=== PATIENT | female | born 1950 | race Caucasian/White ===

== ENCOUNTER → 2018-02-08 11:20 | Outpatient (CLI) | payer MEDICARE, OTHER, SELFPAY ==
[2018-02-08 11:51] LABS: Add Manual Diff / Slide Review NO; Basophils Percent Auto 1.7 % (0-2); Eosinophils Percent Auto 4.9 % (2-4); Hematocrit 38.1 % (36-46); Hemoglobin 13.1 g/dL (12.0-16.0); Lymphocytes Percent Auto 27.2 % (25-40); Mean Corpuscular HGB Conc 34.4 % (30-36); Mean Corpuscular Hemoglobin 31.9 PG (26-34); Mean Corpuscular Volume 92.8 fL (80-100); Monocytes Percent Auto 12.9 % (3-14); Neutrophils Absolute Auto 3100 /uL (3000-5900); Neutrophils Percent Auto 53.3 % (50-75); Platelet Count 352 X10^3/uL (150-400); Red Blood Cell Count 4.11 X10^6/uL (4.0-5.2); Red Cell Distribution Width 13.5 % (11.6-14.8); White Blood Cell Count 5.8 X10^3/uL (4.5-11.0)
[2018-02-08 12:09] LABS: Erythrocyte Sedimentation Rate 16 MM/HR (0-20)
[2018-02-08 12:16] LABS: Alanine Aminotransferase 22 IU/L (9-52); Albumin 4.2 g/dL (3.5-5.0); Albumin Globulin Ratio 1.6 (1.0-2.8); Alkaline Phosphatase 43 U/L (38-126); Aspartate Aminotransferase 24 IU/L (14-36); BUN Creatinine Ratio 25.7 (6-22); Bilirubin Total 0.5 mg/dL (0.2-1.3); Blood Urea Nitrogen 18 mg/dL (7-17); Calcium 9.2 mg/dL (8.4-10.2); Carbon Dioxide 27 mmol/L (22-32); Chloride 106 mmol/L (98-107); Estimated Glomerular Filt Rate > 60.0 mL/min (>60); Globulin 2.7 g/dL (1.7-4.1); Glucose 84 mg/dL (80-110); HEMOLYSIS < 15 (0-50); Potassium 4.2 mmol/L (3.4-5.1); Sodium 143 mmol/L (137-145); Total Protein 6.9 g/dL (6.3-8.2)
[2018-02-08 12:35] LABS: C-Reactive Protein Quant < 0.5 mg/dL (<1.0)
== END ==
PROVIDERS: PCP Physician Assistant; Visit Provider Student in an Organized Health Care Education/Training Program
DX: I77.6 Arteritis, unspecified (principal)
CPT/HCPCS: 36415; 80053; 85025; 85651; 86140

== ENCOUNTER → 2018-03-14 11:08 | Outpatient (CLI) | payer MEDICARE, OTHER, SELFPAY ==
[2018-03-14 12:39] LABS: Add Manual Diff / Slide Review NO; Basophils Percent Auto 1.1 % (0-2); Hematocrit 38.3 % (36-46); Hemoglobin 13.2 g/dL (12.0-16.0); Lymphocytes Percent Auto 40.9 % (25-40); Mean Corpuscular HGB Conc 34.5 % (30-36); Mean Corpuscular Hemoglobin 32.3 PG (26-34); Mean Corpuscular Volume 93.9 fL (80-100); Monocytes Percent Auto 11.3 % (3-14); Neutrophils Absolute Auto 1700 /uL (3000-5900); Neutrophils Percent Auto 41.7 % (50-75); Platelet Count 353 X10^3/uL (150-400); Red Blood Cell Count 4.08 X10^6/uL (4.0-5.2); Red Cell Distribution Width 13.4 % (11.6-14.8)
[2018-03-14 12:45] LABS: Alanine Aminotransferase 27 IU/L (9-52); Albumin 4.3 g/dL (3.5-5.0); Albumin Globulin Ratio 1.7 (1.0-2.8); Alkaline Phosphatase 44 U/L (38-126); Aspartate Aminotransferase 25 IU/L (14-36); BUN Creatinine Ratio 15.7 (6-22); Blood Urea Nitrogen 11 mg/dL (7-17); Calcium 9.9 mg/dL (8.4-10.2); Carbon Dioxide 30 mmol/L (22-32); Chloride 105 mmol/L (98-107); Estimated Glomerular Filt Rate > 60.0 mL/min (>60); Globulin 2.6 g/dL (1.7-4.1); Glucose 84 mg/dL (80-110); HEMOLYSIS < 15 (0-50); Potassium 5.2 mmol/L (3.4-5.1); Sodium 144 mmol/L (137-145); Total Protein 6.9 g/dL (6.3-8.2)
[2018-03-14 12:47] LABS: C-Reactive Protein Quant < 0.5 mg/dL (<1.0)
[2018-03-14 13:05] LABS: Erythrocyte Sedimentation Rate 14 MM/HR (0-20)
== END ==
PROVIDERS: PCP Physician Assistant; Visit Provider Student in an Organized Health Care Education/Training Program
DX: I77.6 Arteritis, unspecified (principal)
CPT/HCPCS: 36415; 80053; 85025; 85651; 86140

== ENCOUNTER → 2018-07-21 13:14 | Outpatient (CLI) | payer MEDICARE, OTHER, SELFPAY ==
[2018-07-21 13:58] LABS: Add Manual Diff / Slide Review NO; Basophils Absolute Auto 100 /uL (0-100); Basophils Percent Auto 1.2 % (0-2); Eosinophils Absolute Auto 300 /uL (0-450); Eosinophils Percent Auto 3.6 % (2-4); Hematocrit 40.4 % (36-46); Hemoglobin 13.5 g/dL (12.0-16.0); Lymphocytes Absolute Auto 2600 /uL (1100-4500); Lymphocytes Percent Auto 32.7 % (25-40); Mean Corpuscular HGB Conc 33.4 % (30-36); Mean Corpuscular Hemoglobin 31.7 PG (26-34); Mean Corpuscular Volume 94.8 fL (80-100); Monocytes Absolute Auto 700 /uL (0-900); Monocytes Percent Auto 8.4 % (3-14); Neutrophils Absolute Auto 4200 /uL (1500-7000); Neutrophils Percent Auto 54.1 % (50-75); Platelet Count 337 X10^3/uL (150-400); Red Blood Cell Count 4.27 X10^6/uL (4.0-5.2); Red Cell Distribution Width 13.6 % (11.6-14.8); White Blood Cell Count 7.9 X10^3/uL (4.5-11.0)
[2018-07-21 14:19] LABS: Erythrocyte Sedimentation Rate 22 MM/HR (0-20)
[2018-07-21 14:45] LABS: Alanine Aminotransferase 27 IU/L (9-52); Albumin 4.6 g/dL (3.5-5.0); Albumin Globulin Ratio 1.7 (1.0-2.8); Alkaline Phosphatase 49 U/L (38-126); Aspartate Aminotransferase 22 IU/L (14-36); BUN Creatinine Ratio 15.7 (6-22); Bilirubin Total 0.6 mg/dL (0.2-1.3); Blood Urea Nitrogen 11 mg/dL (7-17); Calcium 9.9 mg/dL (8.4-10.2); Carbon Dioxide 30 mmol/L (22-32); Chloride 100 mmol/L (98-107); Estimated Glomerular Filt Rate > 60.0 mL/min (>60); Globulin 2.7 g/dL (1.7-4.1); Glucose 125 mg/dL (80-110); HEMOLYSIS < 15 (0-50); Potassium 4.8 mmol/L (3.4-5.1); Sodium 141 mmol/L (137-145); Total Protein 7.3 g/dL (6.3-8.2)
[2018-07-21 14:47] LABS: C-Reactive Protein Quant < 0.5 mg/dL (<1.0)
== END ==
PROVIDERS: PCP Physician Assistant; Visit Provider Student in an Organized Health Care Education/Training Program
DX: I77.6 Arteritis, unspecified (principal)
CPT/HCPCS: 36415; 80053; 85025; 85651; 86140

== ENCOUNTER → 2018-10-25 09:28 | Outpatient (CLI) | payer MEDICARE, OTHER, SELFPAY ==
[2018-10-25 10:24] LABS: Add Manual Diff / Slide Review NO; Basophils Absolute Auto 0 /uL (0-100); Basophils Percent Auto 0.9 % (0-2); Eosinophils Absolute Auto 300 /uL (0-450); Eosinophils Percent Auto 5.1 % (2-4); Hematocrit 40.5 % (36-46); Hemoglobin 13.8 g/dL (12.0-16.0); Lymphocytes Absolute Auto 1600 /uL (1100-4500); Lymphocytes Percent Auto 29.3 % (25-40); Mean Corpuscular HGB Conc 34.1 % (30-36); Mean Corpuscular Hemoglobin 32.2 PG (26-34); Mean Corpuscular Volume 94.3 fL (80-100); Monocytes Absolute Auto 500 /uL (0-900); Monocytes Percent Auto 9.9 % (3-14); Neutrophils Absolute Auto 3000 /uL (1500-7000); Neutrophils Percent Auto 54.8 % (50-75); Platelet Count 372 X10^3/uL (150-400); Red Cell Distribution Width 13.3 % (11.6-14.8); White Blood Cell Count 5.4 X10^3/uL (4.5-11.0)
[2018-10-25 10:36] LABS: Erythrocyte Sedimentation Rate 22 MM/HR (0-20)
[2018-10-25 11:07] LABS: Alanine Aminotransferase 17 IU/L (9-52); Albumin 4.4 g/dL (3.5-5.0); Albumin Globulin Ratio 1.6 (1.0-2.8); Alkaline Phosphatase 59 U/L (38-126); Aspartate Aminotransferase 21 IU/L (14-36); Bilirubin Total 0.4 mg/dL (0.2-1.3); Blood Urea Nitrogen 14 mg/dL (7-17); C-Reactive Protein Quant 0.7 mg/dL (<1.0); Carbon Dioxide 27 mmol/L (22-32); Chloride 102 mmol/L (98-107); Estimated Glomerular Filt Rate > 60.0 mL/min (>60); Globulin 2.8 g/dL (1.7-4.1); Glucose 84 mg/dL (80-110); HEMOLYSIS < 15 (0-50); Sodium 139 mmol/L (137-145); Total Protein 7.2 g/dL (6.3-8.2)
== END ==
PROVIDERS: Family Provider Physician Assistant; PCP Physician Assistant; Visit Provider Student in an Organized Health Care Education/Training Program
DX: I77.6 Arteritis, unspecified (principal)
CPT/HCPCS: 36415; 80053; 85025; 85651; 86140

== ENCOUNTER → 2019-02-09 10:33 | Outpatient (CLI) | payer MEDICARE, OTHER, SELFPAY ==
[2019-02-09 12:10] LABS: Add Manual Diff / Slide Review NO; Basophils Absolute Auto 100 /uL (0-100); Basophils Percent Auto 0.9 % (0-2); Eosinophils Absolute Auto 200 /uL (0-450); Eosinophils Percent Auto 3.9 % (2-4); Hematocrit 39.7 % (36-46); Hemoglobin 13.8 g/dL (12.0-16.0); Lymphocytes Absolute Auto 1800 /uL (1100-4500); Lymphocytes Percent Auto 29.1 % (25-40); Mean Corpuscular HGB Conc 34.8 % (30-36); Mean Corpuscular Hemoglobin 32.3 PG (26-34); Mean Corpuscular Volume 92.9 fL (80-100); Monocytes Absolute Auto 500 /uL (0-900); Monocytes Percent Auto 8.2 % (3-14); Neutrophils Absolute Auto 3500 /uL (1500-7000); Neutrophils Percent Auto 57.9 % (50-75); Platelet Count 375 X10^3/uL (150-400); Red Blood Cell Count 4.27 X10^6/uL (4.0-5.2); Red Cell Distribution Width 13.7 % (11.6-14.8)
[2019-02-09 12:14] LABS: Alanine Aminotransferase 12 IU/L (9-52); Albumin 4.3 g/dL (3.5-5.0); Albumin Globulin Ratio 1.4 (1.0-2.8); Alkaline Phosphatase 60 U/L (38-126); Aspartate Aminotransferase 23 IU/L (14-36); BUN Creatinine Ratio 17.1 (6-22); Bilirubin Total 0.7 mg/dL (0.2-1.3); Blood Urea Nitrogen 12 mg/dL (7-17); C-Reactive Protein Quant 0.6 mg/dL (<1.0); Calcium 9.7 mg/dL (8.4-10.2); Carbon Dioxide 28 mmol/L (22-32); Chloride 102 mmol/L (98-107); Estimated Glomerular Filt Rate > 60.0 mL/min (>60); Globulin 3.1 g/dL (1.7-4.1); Glucose 88 mg/dL (80-110); HEMOLYSIS < 15 (0-50); Potassium 4.5 mmol/L (3.4-5.1); Sodium 141 mmol/L (137-145); Total Protein 7.4 g/dL (6.3-8.2)
[2019-02-09 13:15] LABS: Erythrocyte Sedimentation Rate 30 MM/HR (0-20)
== END ==
PROVIDERS: Family Provider Physician Assistant; PCP Physician Assistant; Visit Provider Student in an Organized Health Care Education/Training Program
DX: I77.6 Arteritis, unspecified (principal)
CPT/HCPCS: 36415; 80053; 85025; 85651; 86140

== ENCOUNTER → 2020-01-15 15:05 | Outpatient (CLI) | payer MEDICARE, OTHER, SELFPAY ==
[2020-01-15 15:41] LABS: Add Manual Diff / Slide Review NO; Basophils Absolute Auto 100 /uL (0-100); Basophils Percent Auto 0.7 % (0-2); Eosinophils Absolute Auto 200 /uL (0-450); Eosinophils Percent Auto 1.7 % (2-4); Hematocrit 36.5 % (36-46); Hemoglobin 12.5 g/dL (12.0-16.0); Lymphocytes Absolute Auto 2000 /uL (1100-4500); Lymphocytes Percent Auto 19.4 % (25-40); Mean Corpuscular HGB Conc 34.2 % (30-36); Mean Corpuscular Hemoglobin 31.1 PG (26-34); Mean Corpuscular Volume 90.8 fL (80-100); Monocytes Absolute Auto 600 /uL (0-900); Neutrophils Absolute Auto 7500 /uL (1500-7000); Neutrophils Percent Auto 72.2 % (50-75); Platelet Count 328 X10^3/uL (150-400); Red Blood Cell Count 4.02 X10^6/uL (4.0-5.2); Red Cell Distribution Width 13.1 % (11.6-14.8); White Blood Cell Count 10.3 X10^3/uL (4.5-11.0)
[2020-01-15 15:58] LABS: Alanine Aminotransferase 16 IU/L (<35); Albumin 4.2 g/dL (3.5-5.0); Albumin Globulin Ratio 1.4 (1.0-2.8); Alkaline Phosphatase 64 U/L (38-126); Aspartate Aminotransferase 26 IU/L (14-36); BUN Creatinine Ratio 25.3 (6-22); Bilirubin Total 0.7 mg/dL (0.2-1.3); Blood Urea Nitrogen 21 mg/dL (7-17); Calcium 9.7 mg/dL (8.4-10.2); Carbon Dioxide 29 mmol/L (22-32); Chloride 107 mmol/L (98-107); Estimated Glomerular Filt Rate > 60.0 mL/min (>60); Globulin 3.1 g/dL (1.7-4.1); Glucose 95 mg/dL (80-110); HEMOLYSIS < 15 (0-50); Potassium 4.3 mmol/L (3.4-5.1); Sodium 141 mmol/L (137-145); Total Protein 7.3 g/dL (6.3-8.2)
[2020-01-15 16:03] LABS: Erythrocyte Sedimentation Rate 31 MM/HR (0-20)
[2020-01-15 16:04] LABS: C-Reactive Protein Quant < 0.5 mg/dL (<1.0)
== END ==
PROVIDERS: Family Provider Physician Assistant; PCP Physician Assistant; Referring Provider Student in an Organized Health Care Education/Training Program; Visit Provider Student in an Organized Health Care Education/Training Program
DX: I77.6 Arteritis, unspecified (principal)
CPT/HCPCS: 36415; 80053; 85025; 85651; 86140

== ENCOUNTER 2020-04-08 17:08 | Emergency (ER) | payer MEDICARE, OTHER, SELFPAY ==
[2020-04-08 17:23] VITALS: BP 199/83; PULSE 59; RESP 14; TEMP 36.7; O2SAT 99
--- NOTE | 2020-04-08 18:54 | ED_ITS ---
HPI - Wound/Laceration General Chief Complaint: Wound/Laceration Stated Complaint: FALL LACERATION OF RIGHT SIDE OF HEAD Time Seen by Provider: 04/08/20 18:45 Source: patient Mode of arrival: Ambulatory Limitations: no limitations History of Present Illness HPI narrative: 69F non smoker with noncontributory medical history presents with her after a ground level fall resulted in a laceration above her right eyebrow. She denies loss of consciousness, nausea or vomiting nor the use of blood thinners or alcohol. She denies any other injury. She has full recall of the event and is otherwise well and free of complaint. She was walking and tripped over uneven ground and fell forward. Onset (ago): hour(s) Location: face Body four view annotation: 1. Place: home Patient tetanus UTD: Yes Context: accidental Associated symptoms: none Treatments prior to arrival: bandage Related Data Home Medications Medication Instructions Recorded Confirmed triamcinolone acetonide 0.1 % TOPICAL QDAYP PRN #454 gm 03/10/16 folic acid 2 tab PO DAILY #0 09/09/17 leucovorin calcium 1 tab PO WEEKLY #0 09/09/17 methotrexate sodium 3 tab PO WEEKLY #0 09/09/17 Previous Rx's Medication Instructions Recorded alendronate 70 mg tablet 70 mg PO QWEEK #12 tab 10/24/18 Allergies Allergy/AdvReac Type Severity Reaction Status Date / Time morphine [MORPHINE] AdvReac Intermediate HIVES Unverified 09/29/17 12:04 Review of Systems Constitutional Constitutional: Denies chills, Denies fatigue, Denies fever(s), Denies frequent falls, Denies lethargy and Denies weakness Eyes Eyes: Denies change in vision, Denies eye discharge, Denies irritation and Denies loss of vision ENT Ears, Nose, Mouth, and Throat: Denies change in voice, Denies dizziness, Denies neck pain, Denies sore throat and Denies throat swelling Cardiovascular Cardiovascular: Denies chest pain, Denies irregular heart rhythm, Denies lightheadedness, Denies palpitations, Denies dyspnea, Denies dyspnea on exertion and Denies orthopnea Respiratory Respiratory: Denies cough, Denies dyspnea, Denies dyspnea on exertion and Denies wheezing Gastrointestinal Gastrointestinal: Denies abdominal pain, Denies change in bowel habits, Denies diarrhea, Denies nausea and Denies vomiting Musculoskeletal Musculoskeletal: Denies neck pain and Denies numbness Integumentary/Breasts Skin/Breast: Denies pruritus, Denies erythema, Denies rash and Denies wounds Neurologic Neurologic: Denies behavioral changes, Denies confusion, Denies dizziness, Denies frequent falls, Denies loss of vision, Denies numbness and Denies weakness Psychiatric Psychiatric: Denies anxiety, Denies behavioral changes, Denies confusion, Denies depression, Denies homicidal ideation and Denies suicidal ideation Endocrine Endocrine: Denies fatigue, Denies flushing and Denies palpitations Hematologic/Lymphatic Hematologic/Lymphatic: Denies easy bruising Allergic/Immunologic Allergic/Immunologic: Denies urticaria, Denies throat swelling and Denies wheezing Patient History Family History (Updated 03/10/16 @ 00:00 by Farida Shanks PA-C) Brother Type 1 diabetes mellitus without complication Brother Alcoholism /alcohol abuse Father Essential hypertension Mother Essential hypertension Social History Smoking Status: Never smoker Smoking Status: Never smoker tobacco type: cigarettes alcohol intake frequency: 0-2 drinks per day Alcohol type: beer Substance Use Type: does not use Exam Narrative Exam Narrative: GENERAL: [69] year old patient appears stated age. Well-nourishe d, well-developed patient, in mild distress. GCS 15 HEAD: 3cm laceration lateral to R brow. NO evidence of depressed skull fracture. Normocephalic. EYES: Pupils equal round and reactive. Extraocular motions intact. No scleral icterus. No injection or drainage. ENT: Nose without bleeding, purulent drainage. Throat without erythema, tonsillar hypertrophy or exudate. Airway patent. NECK: Trachea midline. Non tender CARDIOVASCULAR: Regular rate and rhythm without murmurs, gallops, or rubs. RESPIRATORY: Clear to auscultation. Breath sounds equal bilaterally. No wheezes, rales, or rhonchi. GASTROINTESTINAL: Abdomen soft, non-tender, nondistended. EXTREMITIES: No edema or joint tenderness. BACK: Nontender without deformity or crepitance. No flank tenderness. NEURO: AOx3. SKIN: No rash or erythema of visible areas Initial Vital Signs Initial Vital Signs: Vital Signs Temperature 98.1 F 04/08/20 17:23 Pulse Rate 59 L 04/08/20 17:23 Respiratory Rate 14 04/08/20 17:23 Blood Pressure 199/83 H 04/08/20 17:23 Pulse Oximetry 99 04/08/20 17:23 Procedures Laceration Repair Laceration 1: Site: face Side (If applicable): right Size (cm): 3 Description: linear Depth: simple, single layer Local Anesthetic: lidocaine 1% and with bicarb Amount of anesthesia used (mL): 4 Pre-repair: wound explored, irrigated extensively and deep structures intact Skin layer closed with: nylon Size (cm): 6-0 Number of sutures: 5 Technique: simple, interrupted Course Orders Ordered: Discontinued Medications Bacitracin (Bacitracin) 1 applic TOP NOW ONE Stop: 04/08/20 19:12 Last Admin: 04/08/20 19:14 Dose: 1 applic Documented by: KGALLAG Lidocaine/Sodium Bicarbonate (Buffered Lidocaine 10 Ml Syr) 10 ml INJ NOW ONE Stop: 04/08/20 18:59 Last Admin: 04/08/20 19:04 Dose: 10 ml Documented by: BTONER Vital Signs Vital signs: Vital Signs - 8 hr 04/08/20 19:23 Pulse Rate 60 Respiratory Rate 15 Blood Pressure 174/77 H Pulse Oximetry 100 Discharge Plan Departure Patient Disposition: Home Clinical Impression: Laceration Discharge Date/Time: 04/08/20 19:26 Instructions: DI for Laceration Repair Activity Restrictions/Additional Instructions: Please keep the wound clean and dry to the best of your ability. Please monitor for signs of infection such as redness to the skin or increasing pain. Have the sutures removed by your doctor in about 7 days. If you are unable to get into your doctor, we would be happy to remove the sutures in that same timeframe. Prescriptions: No Action triamcinolone acetonide 0.1 % ointment 0.1 % Topical QDAYP PRNQty: 454 RF: 0 methotrexate sodium 2.5 MG tablet 3 tab PO WEEKLY Qty: 0 RF: 0 folic acid 1 MG tablet 2 tab PO DAILY Qty: 0 RF: 0 leucovorin calcium 10 MG tablet 1 tab PO WEEKLY Qty: 0 RF: 0 alendronate 70 mg tablet 70 mg PO QWEEK Qty: 12 RF: 0
[2020-04-08] MEDS: LIDO 1%/SOD BICARB 8.4% (10ML) 10 ML SYRINGE INJ (19:04)
[2020-04-08] MEDS: BACITRACIN OINT 0.9 GM PCKT 1 APPLIC TOP (19:14)
[2020-04-08 19:23] VITALS: BP 174/77; PULSE 60; RESP 15; O2SAT 100
--- NOTE | 2020-04-08 19:25 | PC.NURSE ---
sutures done by dr murray.
== END 2020-04-08 19:26 | disposition home or self-care (01) ==
PROVIDERS: Emergency Provider Emergency Medicine
DX: S01.111A Laceration without foreign body of right eyelid and periocular area, initial encounter (principal); W19.XXXA Unspecified fall, initial encounter
CPT/HCPCS: 12013; 99283

== ENCOUNTER → 2020-04-16 12:13 | Outpatient (CLI) | payer MEDICARE, OTHER, SELFPAY ==
[2020-04-16 13:09] LABS: Hematocrit 39.9 % (36-46); Hemoglobin 13.5 g/dL (12.0-16.0); Mean Corpuscular HGB Conc 33.9 % (30-36); Mean Corpuscular Hemoglobin 31.3 PG (26-34); Mean Corpuscular Volume 92.4 fL (80-100); Platelet Count 441 X10^3/uL (150-400); Red Blood Cell Count 4.32 X10^6/uL (4.0-5.2); Red Cell Distribution Width 13.5 % (11.6-14.8)
[2020-04-16 13:20] LABS: Neutrophils Absolute Manual 4410 /uL (3000-5900); RBC Morphology Normal Morphology; Total Cells Counted 100
[2020-04-16 13:25] LABS: Alanine Aminotransferase 18 IU/L (<35); Albumin 4.5 g/dL (3.5-5.0); Albumin Globulin Ratio 1.3 (1.0-2.8); Alkaline Phosphatase 77 U/L (38-126); Aspartate Aminotransferase 28 IU/L (14-36); BUN Creatinine Ratio 13.5 (6-22); Bilirubin Total 0.6 mg/dL (0.2-1.3); Blood Urea Nitrogen 12 mg/dL (7-17); Calcium 9.7 mg/dL (8.4-10.2); Carbon Dioxide 32 mmol/L (22-32); Chloride 103 mmol/L (98-107); Cholesterol 235 mg/dL (140-199); Estimated Glomerular Filt Rate > 60.0 mL/min (>60); Globulin 3.5 g/dL (1.7-4.1); Glucose 91 mg/dL (80-110); HDL Cholesterol 49 mg/dL (40-60); HEMOLYSIS < 15 (0-50); LDL Cholesterol Calculated 154 mg/dL (<100); Potassium 5.3 mmol/L (3.4-5.1); Sodium 140 mmol/L (137-145); Triglycerides 159 mg/dL (35-150)
[2020-04-16 13:26] LABS: Erythrocyte Sedimentation Rate 34 MM/HR (0-20)
[2020-04-16 13:57] LABS: TSH w/ Reflex to FT4 0.65 uIU/mL (0.47-4.68)
== END ==
PROVIDERS: PCP Registered Nurse Diabetes Educator; Referring Provider Registered Nurse Diabetes Educator; Visit Provider Registered Nurse Diabetes Educator
DX: Z00.00 Encounter for general adult medical examination without abnormal findings (principal); Z12.11 Encounter for screening for malignant neoplasm of colon; E05.00 Thyrotoxicosis with diffuse goiter without thyrotoxic crisis or storm; I77.6 Arteritis, unspecified
CPT/HCPCS: 36415; 80053; 80061; 84443; 85025; 85651

== ENCOUNTER → 2020-06-03 15:02 | Outpatient (CLI) | payer MEDICARE, OTHER, SELFPAY ==
--- NOTE | 2020-06-03 15:03 | DI.MG.S_ITS ---
BILATERAL DIGITAL SCREENING MAMMOGRAM 3D/2D WITH CAD: 06/03/2020 CLINICAL: Routine screening. Comparison is made to exams dated: 11/03/2017 mammogram, 07/11/2015 mammogram, and 05/09/2008 mammogram - [facility]. The tissue of both breasts is heterogeneously dense. This may lower the sensitivity of mammography. Current study was also evaluated with a Computer Aided Detection (CAD) system. No significant masses, calcifications, or other findings are seen in either breast. There has been no significant interval change. IMPRESSION: NEGATIVE There is no mammographic evidence of malignancy. A 1 year screening mammogram is recommended. This exam was interpreted at Station ID: [id number]. NOTE: For mammograms, a report in lay terms will be sent to the patient. Approximately 15% of breast malignancies will not be visualized mammographically. In the management of a palpable breast mass, a negative mammogram must not discourage biopsy of a clinically suspicious lesion. Electronically Signed By: Cyrus lawson/lidia:06/04/2020 08:22:05 letter sent: Normal Exam ACR BI-RADS Category 1: Negative 3341F
== END ==
PROVIDERS: PCP Registered Nurse Diabetes Educator; Referring Provider Registered Nurse Diabetes Educator; Visit Provider Registered Nurse Diabetes Educator
DX: Z12.31 Encounter for screening mammogram for malignant neoplasm of breast (principal); M81.0 Age-related osteoporosis without current pathological fracture; Z78.0 Asymptomatic menopausal state
CPT/HCPCS: 77063; 77067; 77080

== ENCOUNTER → 2020-07-17 15:00 | Outpatient (CLI) | payer MEDICARE, OTHER, SELFPAY ==
[2020-07-18 14:57] LABS: Fecal Immunochemical Test Negative (Negative)
== END ==
PROVIDERS: PCP Registered Nurse Diabetes Educator; Referring Provider Registered Nurse Diabetes Educator; Visit Provider Registered Nurse Diabetes Educator
DX: E05.00 Thyrotoxicosis with diffuse goiter without thyrotoxic crisis or storm (principal); I77.6 Arteritis, unspecified; Z00.00 Encounter for general adult medical examination without abnormal findings; Z12.11 Encounter for screening for malignant neoplasm of colon
CPT/HCPCS: 82274

== ENCOUNTER → 2020-07-24 10:47 | Outpatient (CLI) | payer MEDICARE, OTHER, SELFPAY ==
[2020-07-24 11:12] LABS: Add Manual Diff / Slide Review NO; Basophils Absolute Auto 100 /uL (0-100); Basophils Percent Auto 1.1 % (0-2); Eosinophils Absolute Auto 300 /uL (0-450); Eosinophils Percent Auto 3.4 % (2-4); Hematocrit 30.5 % (36-46); Hemoglobin 10.4 g/dL (12.0-16.0); Lymphocytes Absolute Auto 2000 /uL (1100-4500); Lymphocytes Percent Auto 25.4 % (25-40); Mean Corpuscular HGB Conc 34.1 % (30-36); Mean Corpuscular Hemoglobin 31.2 PG (26-34); Mean Corpuscular Volume 91.5 fL (80-100); Monocytes Absolute Auto 700 /uL (0-900); Monocytes Percent Auto 8.7 % (3-14); Neutrophils Absolute Auto 4900 /uL (1500-7000); Neutrophils Percent Auto 61.4 % (50-75); Platelet Count 415 X10^3/uL (150-400); Red Blood Cell Count 3.33 X10^6/uL (4.0-5.2); Red Cell Distribution Width 13.3 % (11.6-14.8)
[2020-07-24 11:32] LABS: Erythrocyte Sedimentation Rate 79 MM/HR (0-20)
[2020-07-24 11:34] LABS: BUN Creatinine Ratio 14.5 (6-22); Blood Urea Nitrogen 39 mg/dL (7-17); C-Reactive Protein Quant 0.9 mg/dL (<1.0); Carbon Dioxide 26 mmol/L (22-32); Chloride 108 mmol/L (98-107); Estimated Glomerular Filt Rate 17.6 mL/min (>60); Glucose 95 mg/dL (80-110); HEMOLYSIS < 15 (0-50); Potassium 4.1 mmol/L (3.4-5.1); Sodium 139 mmol/L (137-145)
== END ==
PROVIDERS: PCP Registered Nurse Diabetes Educator; Referring Provider Registered Nurse Diabetes Educator; Visit Provider Registered Nurse Diabetes Educator
DX: E87.5 Hyperkalemia (principal); I77.6 Arteritis, unspecified
CPT/HCPCS: 36415; 80048; 85025; 85651; 86140

== ENCOUNTER 2020-07-24 13:27 | Emergency (ER) | payer MEDICARE, OTHER, SELFPAY ==
[2020-07-24] VITALS (15 sets, daily range): BP systolic 199–239; BP diastolic 82–103; PULSE 59–85; RESP 13–22; TEMP 37.2; O2SAT 98–100
[2020-07-24 14:06] LABS: Add Manual Diff / Slide Review NO; Basophils Absolute Auto 100 /uL (0-100); Basophils Percent Auto 0.7 % (0-2); Eosinophils Absolute Auto 300 /uL (0-450); Eosinophils Percent Auto 2.7 % (2-4); Hematocrit 31.7 % (36-46); Hemoglobin 10.9 g/dL (12.0-16.0); Lymphocytes Absolute Auto 2300 /uL (1100-4500); Lymphocytes Percent Auto 21.1 % (25-40); Mean Corpuscular HGB Conc 34.2 % (30-36); Mean Corpuscular Hemoglobin 31.4 PG (26-34); Mean Corpuscular Volume 91.8 fL (80-100); Monocytes Absolute Auto 900 /uL (0-900); Neutrophils Absolute Auto 7300 /uL (1500-7000); Neutrophils Percent Auto 67.5 % (50-75); Platelet Count 421 X10^3/uL (150-400); Red Blood Cell Count 3.46 X10^6/uL (4.0-5.2); Red Cell Distribution Width 13.1 % (11.6-14.8); White Blood Cell Count 10.8 X10^3/uL (4.5-11.0)
[2020-07-24 14:11] LABS: Alanine Aminotransferase 11 IU/L (<35); Albumin 4.1 g/dL (3.5-5.0); Albumin Globulin Ratio 1.1 (1.0-2.8); Alkaline Phosphatase 70 U/L (38-126); Aspartate Aminotransferase 21 IU/L (14-36); BUN Creatinine Ratio 13.9 (6-22); Bilirubin Total 0.3 mg/dL (0.2-1.3); Blood Urea Nitrogen 39 mg/dL (7-17); Carbon Dioxide 25 mmol/L (22-32); Chloride 109 mmol/L (98-107); Estimated Glomerular Filt Rate 16.8 mL/min (>60); Globulin 3.6 g/dL (1.7-4.1); Glucose 118 mg/dL (80-110); HEMOLYSIS < 15 (0-50); Potassium 3.7 mmol/L (3.4-5.1); Sodium 140 mmol/L (137-145); Total Protein 7.7 g/dL (6.3-8.2)
[2020-07-24 14:12] LABS: Magnesium 2.2 mg/dL (1.6-2.3)
--- NOTE | 2020-07-24 14:22 | DI.CT.S_ITS ---
PROCEDURE: CT KIDNEY URETER BLADDER (KUB) INDICATIONS: elevated cr, hx vasculitis TECHNIQUE: Noncontrast 5 mm thick sections acquired from the diaphragms to the symphysis. 5 mm thick coronal and sagittal reformats were then performed. For radiation dose reduction, the following was used: automated exposure control, adjustment of mA and/or kV according to patient size. COMPARISON: None. FINDINGS: Image quality: Excellent. Lung bases: Lung bases are clear. Heart size is normal. Urinary system: Both kidneys are normal in size. No kidney stones. No hydronephrosis or perinephric fat stranding. Both ureters appear non-dilated throughout their expected courses. Bladder wall thickness is normal; no calcified bladder stones. Other solid organs: Liver is normal in size. A probable significantly contracted gallbladder is noted. Pancreas is normal in contours. Spleen is absent. No adrenal nodules. Peritoneum and bowel: Unenhanced bowel loops demonstrate normal wall thickness and caliber. No free fluid or air. Nodes and vessels: No retroperitoneal or mesenteric adenopathy by size criteria. Aorta and inferior vena cava are normal in caliber. Abdominal wall: No ventral hernias. Pelvis: No free pelvic fluid. No inguinal hernias or adenopathy. Bones: No suspicious bony lesions. No vertebral body compression fractures. IMPRESSION: 1. Remote splenectomy. 2. No evidence of renal stone, ureteral stone, or hydronephrosis. Kidneys are of normal size. Dictated by: Nemesio Deluna M.D. on 07/24/2020 at 14:55 Approved by: Nemesio Deluna M.D. on 07/24/2020 at 15:00
[2020-07-24 14:31] LABS: Erythrocyte Sedimentation Rate 104 MM/HR (0-20)
--- NOTE | 2020-07-24 14:38 | ED.RECABL ---
HPI - Recheck/Abnormal Lab/Rx <WILMAR Tucker - Last Filed: 07/24/20 16:20> General Chief Complaint: Recheck/Abnormal Lab/Rx Stated Complaint: Abnormal labs, states kidneys bad Time Seen by Provider: 07/24/20 13:54 Source: patient Mode of arrival: Ambulatory Limitations: no limitations History of Present Illness HPI narrative: The patient is a 69 year old female nonsmoker with history of ANCA vasculitis as well as Graves disease who presents with a chief complaint of abnormal outpatient labs. The patient was referred to emergency department as her ESR has bumped up to 79 and her creatinine has gone from normal to almost 3 on labs that were drawn today. Overall she states she feels fatigued for the past several weeks. She is under lot of stress at home and subsequently has not been sleeping well until the past few days. She denies any pain, flank pain, dysuria urgency or frequency. She denies any history of kidney stones. Her primary care provider is Gurwinder Madison. Her intravenous therapy nurse is Dr. Regino Galvan from [facility]. Related Data Previous Rx's Medication Instructions Recorded desonide 0.05 % topical cream 1 applictn TOP QD-BID PRN #60 gram 04/29/20 nifedipine 30 mg tablet,extended 30 mg PO DAILY #90 tab 04/29/20 release omeprazole 40 mg capsule,delayed 40 mg PO DAILY #30 cap 04/29/20 release triamcinolone acetonide 0.1 % 0.1 % TOPICAL QDAYP PRN #80 gram 04/29/20 topical ointment alendronate 70 mg tablet 70 mg PO QWEEK #12 tab 06/10/20 Allergies Allergy/AdvReac Type Severity Reaction Status Date / Time morphine [MORPHINE] AdvReac Intermediate HIVES Verified 06/10/20 10:31 Review of Systems <WILMAR Tucker - Last Filed: 07/24/20 16:20> Review of Systems Narrative: GENERAL: See HPI HEENT: Denies sinus pain, ear pain, sore throat, difficulty swallowing, dizziness. RESPIRATORY: Denies dyspnea, cough, wheezing, hemoptysis, sputum. CARDIOVASCULAR: Denies chest pain, palpitations, orthopnea, edema, GASTROINTESTINAL: See HPI : Denies dysuria, frequency, incontinence, hematuria, urinary retention. MUSCULOSKELETAL: denies weakness, joint pain, or bony pain SKIN: Denies rash, skin lesions, or other NEUROLOGIC: Denies weakness, headache, numbness, change in speech, confusion, seizures, incoordination. 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) Family History Brother Type 1 diabetes mellitus without complication Brother Alcoholism /alcohol abuse Father Essential hypertension Mother Essential hypertension Stroke Gout Grandfather History of heart disease Grandmother Cancer Grandfather Circulatory disease Grandmother History of heart disease Social History Smoking Status: Never smoker Smoking Status: Never smoker tobacco type: cigarettes alcohol intake frequency: 0-2 drinks per day Alcohol type: beer Substance Use Type: does not use Exam <WILMAR Tucker - Last Filed: 07/24/20 16:20> Narrative Exam Narrative: GENERAL: This is a well-nourished, well-developed patient, in no acute distress HEAD: Atraumatic. Normocephalic. No temporal or scalp tenderness. EYES: Pupils equal round and reactive. Extraocular motions intact. No scleral icterus. No injection or drainage. ENT: Nose without bleeding, purulent drainage or septal hematoma. Wearing a mask. Airway patent. NECK: Trachea midline. No JVD or lymphadenopathy. Supple, nontender, no meningeal signs. CARDIOVASCULAR: Regular rate and rhythm RESPIRATORY: Clear to auscultation. Breath sounds equal bilaterally. No wheezes, rales, or rhonchi. No cough. No increased respiratory effort. No accessory muscle use. GASTROINTESTINAL: Abdomen soft, non-tender, nondistended. No hepato-splenomegaly, or palpable masses. No guarding. EXTREMITIES: No clubbing, cyanosis, or edema. No joint tenderness, effusion, or edema noted. BACK: Nontender without deformity or crepitance. No CVA tenderness bilaterally. NEURO: AOx3. SKIN: No rash or erythema on visible skin. Initial Vital Signs Initial Vital Signs: Vital Signs Temperature 98.9 F 07/24/20 13:31 Pulse Rate 81 07/24/20 13:31 Respiratory Rate 22 07/24/20 13:31 Blood Pressure 210/93 H 07/24/20 13:31 Pulse Oximetry 99 07/24/20 13:31 <Teena Atkins DO - Last Filed: 07/25/20 08:14> Initial Vital Signs Initial Vital Signs: Vital Signs Temperature 98.9 F 07/24/20 13:31 Pulse Rate 81 07/24/20 13:31 Respiratory Rate 22 07/24/20 13:31 Blood Pressure 210/93 H 07/24/20 13:31 Pulse Oximetry 99 07/24/20 13:31 <Adonis Bradford MD - Last Filed: 07/24/20 23:36> Initial Vital Signs Initial Vital Signs: Vital Signs Temperature 98.9 F 07/24/20 13:31 Pulse Rate 81 07/24/20 13:31 Respiratory Rate 22 07/24/20 13:31 Blood Pressure 210/93 H 07/24/20 13:31 Pulse Oximetry 99 07/24/20 13:31 Course <VERNON Tucker-BC - Last Filed: 07/24/20 16:20> Orders Ordered: Discontinued Medications Sodium Chloride (Normal Saline 0.9%) 1,000 mls @ 1,000 mls/hr IV BOLUS ONE Stop: 07/24/20 15:21 Last Infusion: 07/24/20 16:49 Dose: 0 mls/hr Documented by: Admin: 07/24/20 15:30 Dose: 1,000 mls/hr Documented by: LUPE Methylprednisolone 1,000 mg/ (Sodium Chloride) 258 mls @ 258 mls/hr IV NOW ONE Stop: 07/24/20 17:29 Last Infusion: 07/24/20 19:29 Dose: 0 mls/hr Documented by: Admin: 07/24/20 17:54 Dose: 258 mls/hr Documented by: LUPE Labetalol HCl (Labetalol 20 Mg/4 Ml Syringe) 10 mg IV NOW ONE Stop: 07/24/20 18:33 Last Admin: 07/24/20 18:39 Dose: 10 mg Documented by: LUPE Nifedipine (Nifedipine 30 Mg Tab Er) 30 mg PO NOW ONE Stop: 07/24/20 17:27 Last Admin: 07/24/20 17:32 Dose: 30 mg Documented by: LUPE Vital Signs Vital signs: Vital Signs - 8 hr 07/24/20 16:00 07/24/20 17:06 07/24/20 17:30 Pulse Rate 66 66 85 Respiratory Rate Blood Pressure 225/100 H 239/103 H 212/101 H Pulse Oximetry 99 100 98 07/24/20 18:00 07/24/20 18:30 07/24/20 18:39 Pulse Rate 60 59 L 65 Respiratory Rate Blood Pressure 211/94 H 217/98 H 210/95 H Pulse Oximetry 99 99 07/24/20 18:41 07/24/20 18:51 07/24/20 19:00 Pulse Rate 68 66 63 Respiratory Rate 13 22 18 Blood Pressure 210/95 H 199/82 H 200/93 H Pulse Oximetry 98 98 98 07/24/20 19:19 07/24/20 19:30 07/24/20 19:33 Pulse Rate 72 66 Respiratory Rate 18 Blood Pressure 199/82 H 236/100 H Pulse Oximetry 99 <Teena Atkins, - Last Filed: 07/25/20 08:14> Orders Ordered: Discontinued Medications Sodium Chloride (Normal Saline 0.9%) 1,000 mls @ 1,000 mls/hr IV BOLUS ONE Stop: 07/24/20 15:21 Last Infusion: 07/24/20 16:49 Dose: 0 mls/hr Documented by: Admin: 07/24/20 15:30 Dose: 1,000 mls/hr Documented by: ULPE Methylprednisolone 1,000 mg/ (Sodium Chloride) 258 mls @ 258 mls/hr IV NOW ONE Stop: 07/24/20 17:29 Last Infusion: 07/24/20 19:29 Dose: 0 mls/hr Documented by: Admin: 07/24/20 17:54 Dose: 258 mls/hr Documented by: LUPE Labetalol HCl (Labetalol 20 Mg/4 Ml Syringe) 10 mg IV NOW ONE Stop: 07/24/20 18:33 Last Admin: 07/24/20 18:39 Dose: 10 mg Documented by: LUPE Nifedipine (Nifedipine 30 Mg Tab Er) 30 mg PO NOW ONE Stop: 07/24/20 17:27 Last Admin: 07/24/20 17:32 Dose: 30 mg Documented by: LUPE Vital Signs Vital signs: Vital Signs - 8 hr 07/24/20 16:00 07/24/20 17:06 07/24/20 17:30 Pulse Rate 66 66 85 Respiratory Rate Blood Pressure 225/100 H 239/103 H 212/101 H Pulse Oximetry 99 100 98 07/24/20 18:00 07/24/20 18:30 07/24/20 18:39 Pulse Rate 60 59 L 65 Respiratory Rate Blood Pressure 211/94 H 217/98 H 210/95 H Pulse Oximetry 99 99 07/24/20 18:41 07/24/20 18:51 07/24/20 19:00 Pulse Rate 68 66 63 Respiratory Rate 13 22 18 Blood Pressure 210/95 H 199/82 H 200/93 H Pulse Oximetry 98 98 98 07/24/20 19:19 07/24/20 19:30 07/24/20 19:33 Pulse Rate 72 66 Respiratory Rate 18 Blood Pressure 199/82 H 236/100 H Pulse Oximetry 99 <Adonis Bradford MD - Last Filed: 07/24/20 23:36> Course Course Narrative: Chart entry by me due to complete disposition and diagnosis. Patient was not signed out to me. Dk Orders Ordered: Discontinued Medications Sodium Chloride (Normal Saline 0.9%) 1,000 mls @ 1,000 mls/hr IV BOLUS ONE Stop: 07/24/20 15:21 Last Infusion: 07/24/20 16:49 Dose: 0 mls/hr Documented by: Admin: 07/24/20 15:30 Dose: 1,000 mls/hr Documented by: LUPE Methylprednisolone 1,000 mg/ (Sodium Chloride) 258 mls @ 258 mls/hr IV NOW ONE Stop: 07/24/20 17:29 Last Infusion: 07/24/20 19:29 Dose: 0 mls/hr Documented by: Admin: 07/24/20 17:54 Dose: 258 mls/hr Documented by: LUPE Labetalol HCl (Labetalol 20 Mg/4 Ml Syringe) 10 mg IV NOW ONE Stop: 07/24/20 18:33 Last Admin: 07/24/20 18:39 Dose: 10 mg Documented by: LUPE Nifedipine (Nifedipine 30 Mg Tab Er) 30 mg PO NOW ONE Stop: 07/24/20 17:27 Last Admin: 07/24/20 17:32 Dose: 30 mg Documented by: LUPE Vital Signs Vital signs: Vital Signs - 8 hr 07/24/20 16:00 07/24/20 17:06 07/24/20 17:30 Pulse Rate 66 66 85 Respiratory Rate Blood Pressure 225/100 H 239/103 H 212/101 H Pulse Oximetry 99 100 98 07/24/20 18:00 07/24/20 18:30 07/24/20 18:39 Pulse Rate 60 59 L 65 Respiratory Rate Blood Pressure 211/94 H 217/98 H 210/95 H Pulse Oximetry 99 99 07/24/20 18:41 07/24/20 18:51 07/24/20 19:00 Pulse Rate 68 66 63 Respiratory Rate 13 22 18 Blood Pressure 210/95 H 199/82 H 200/93 H Pulse Oximetry 98 98 98 07/24/20 19:19 07/24/20 19:30 07/24/20 19:33 Pulse Rate 72 66 Respiratory Rate 18 Blood Pressure 199/82 H 236/100 H Pulse Oximetry 99 MDM - Recheck/Abnormal Lab/Rx <VERNON Tucker-BC - Last Filed: 07/24/20 16:20> Lab Data Attestation: I reviewed the patient's lab results. Result diagrams: 07/24/20 13:59 07/24/20 13:59 Labs: Lab Results 07/24/20 07/24/20 07/24/20 Range/Units 13:59 13:59 13:59 WBC 10.8 (4.5-11.0) X10^3/uL RBC 3.46 L (4.0-5.2) X10^6/uL Hgb 10.9 L (12.0-16.0) g/dL Hct 31.7 L (36-46) % MCV 91.8 (80-100) fL MCH 31.4 (26-34) PG MCHC 34.2 (30-36) % RDW 13.1 (11.6-14.8) % Plt Count 421 H (150-400) X10^3/uL Neut % (Auto) 67.5 (50-75) % Lymph % (Auto) 21.1 L (25-40) % [place] % (Auto) 8.0 (3-14) % Eos % (Auto) 2.7 (2-4) % Baso % (Auto) 0.7 (0-2) % Neut # (Auto) 7300 H (5340-4517) /uL Lymph # (Auto) 2300 (3813-9172) /uL [place] # (Auto) 900 (0-900) /uL Eos # (Auto) 300 (0-450) /uL Baso # (Auto) 100 (0-100) /uL ESR (0-20) MM/HR Sodium 140 (137-145) mmol/L Potassium 3.7 (3.4-5.1) mmol/L Chloride 109 H (98-107) mmol/L Carbon Dioxide 25 (22-32) mmol/L BUN 39 H (7-17) mg/dL Creatinine 2.80 H (0.52-1.04) mg/dL Estimated GFR 16.8 L (>60) mL/min BUN/Creatinine Ratio 13.9 (6-22) Glucose 118 H (80-110) mg/dL Calcium 9.0 (8.4-10.2) mg/dL Magnesium 2.2 (1.6-2.3) mg/dL Total Bilirubin 0.3 (0.2-1.3) mg/dL AST 21 (14-36) IU/L ALT 11 (<35) IU/L Alkaline Phosphatase 70 (38-126) U/L C-Reactive Protein (<1.0) mg/dL Total Protein 7.7 (6.3-8.2) g/dL Albumin 4.1 (3.5-5.0) g/dL Globulin 3.6 (1.7-4.1) g/dL Albumin/Globulin Ratio 1.1 (1.0-2.8) Urine RBC (0-5/HPF) Urine WBC (0-5/HPF) Ur Squamous Epith Cells (0-5/HPF) Amorphous Sediment Urine Bacteria (None) Ur Culture Indicated? SARS-CoV-2 (PCR) (Negative) 07/24/20 07/24/20 07/24/20 Range/Units 13:59 13:59 16:12 WBC (4.5-11.0) X10^3/uL RBC (4.0-5.2) X10^6/uL Hgb (12.0-16.0) g/dL Hct (36-46) % MCV (80-100) fL MCH (26-34) PG MCHC (30-36) % RDW (11.6-14.8) % Plt Count (150-400) X10^3/uL Neut % (Auto) (50-75) % Lymph % (Auto) (25-40) % [place] % (Auto) (3-14) % Eos % (Auto) (2-4) % Baso % (Auto) (0-2) % Neut # (Auto) (3904-5715) /uL Lymph # (Auto) (2202-8332) /uL [place] # (Auto) (0-900) /uL Eos # (Auto) (0-450) /uL Baso # (Auto) (0-100) /uL ESR 104 H (0-20) MM/HR Sodium (137-145) mmol/L Potassium (3.4-5.1) mmol/L Chloride (98-107) mmol/L Carbon Dioxide (22-32) mmol/L BUN (7-17) mg/dL Creatinine (0.52-1.04) mg/dL Estimated GFR (>60) mL/min BUN/Creatinine Ratio (6-22) Glucose (80-110) mg/dL Calcium (8.4-10.2) mg/dL Magnesium (1.6-2.3) mg/dL Total Bilirubin (0.2-1.3) mg/dL AST (14-36) IU/L ALT (<35) IU/L Alkaline Phosphatase (38-126) U/L C-Reactive Protein 0.8 (<1.0) mg/dL Total Protein (6.3-8.2) g/dL Albumin (3.5-5.0) g/dL Globulin (1.7-4.1) g/dL Albumin/Globulin Ratio (1.0-2.8) Urine RBC (0-5/HPF) Urine WBC (0-5/HPF) Ur Squamous Epith Cells (0-5/HPF) Amorphous Sediment Urine Bacteria (None) Ur Culture Indicated? SARS-CoV-2 (PCR) Negative (Negative) 07/24/20 Range/Units 16:40 WBC (4.5-11.0) X10^3/uL RBC (4.0-5.2) X10^6/uL Hgb (12.0-16.0) g/dL Hct (36-46) % MCV (80-100) fL MCH (26-34) PG MCHC (30-36) % RDW (11.6-14.8) % Plt Count (150-400) X10^3/uL Neut % (Auto) (50-75) % Lymph % (Auto) (25-40) % [place] % (Auto) (3-14) % Eos % (Auto) (2-4) % Baso % (Auto) (0-2) % Neut # (Auto) (6780-5540) /uL Lymph # (Auto) (4870-2697) /uL [place] # (Auto) (0-900) /uL Eos # (Auto) (0-450) /uL Baso # (Auto) (0-100) /uL ESR (0-20) MM/HR Sodium (137-145) mmol/L Potassium (3.4-5.1) mmol/L Chloride (98-107) mmol/L Carbon Dioxide (22-32) mmol/L BUN (7-17) mg/dL Creatinine (0.52-1.04) mg/dL Estimated GFR (>60) mL/min BUN/Creatinine Ratio (6-22) Glucose (80-110) mg/dL Calcium (8.4-10.2) mg/dL Magnesium (1.6-2.3) mg/dL Total Bilirubin (0.2-1.3) mg/dL AST (14-36) IU/L ALT (<35) IU/L Alkaline Phosphatase (38-126) U/L C-Reactive Protein (<1.0) mg/dL Total Protein (6.3-8.2) g/dL Albumin (3.5-5.0) g/dL Globulin (1.7-4.1) g/dL Albumin/Globulin Ratio (1.0-2.8) Urine RBC 30-100/hpf H (0-5/HPF) Urine WBC 0-1/hpf (0-5/HPF) Ur Squamous Epith Cells 0-1 /hpf (0-5/HPF) Amorphous Sediment 1+ Urine Bacteria None seen (None) Ur Culture Indicated? Cult not indicated SARS-CoV-2 (PCR) (Negative) Urine Dip Bedside Urine Glucose Negative Bedside Urine Bilirubin - Negative Bedside Urine Ketone - Negative Urine Specific [place] 1.015 Bedside Urine Occult Blood +++ Bedside Urine pH 6.5 Bedside Urine Protein ++ 100 Bedside Urine Urobilinogen - Negative Bedside Urine Nitrite - Negative Bedside Urine Leukocytes - Negative Esterase Imaging Data CT scan - abdomen/pelvis: Radiologist's Impression: [address] [place] [id number] Scan ReportSigned Patient: Lili Matthews CMR#: [id number]: 2Acct:[id number]/Sex: 69 / FDate of Service: 07/24/20Loc: EDAccession Number: [id number] Procedure: CT kidney ureter bladder (KUB) Ordering Provider: Luciana Sanford- PROCEDURE: CT KIDNEY URETER BLADDER (KUB) INDICATIONS: elevated cr, hx vasculitis TECHNIQUE: Noncontrast 5 mm thick sections acquired from the diaphragms to the symphysis. 5 mm thick coronal and sagittal reformats were then performed. For radiation dose reduction, the following was used: automated exposure control, adjustment of mA and/or kV according to patient size. COMPARISON: None. FINDINGS: Image quality: Excellent. Lung bases: Lung bases are clear. Heart size is normal. Urinary system: Both kidneys are normal in size. No kidney stones. No hydronephrosis or perinephric fat stranding. Both ureters appear non-dilated throughout their expected courses. Bladder wall thickness is normal; no calcified bladder stones. Other solid organs: Liver is normal in size. A probable significantly contracted gallbladder is noted. Pancreas is normal in contours. Spleen is absent. No adrenal nodules. Peritoneum and bowel: Unenhanced bowel loops demonstrate normal wall thickness and caliber. No free fluid or air. Nodes and vessels: No retroperitoneal or mesenteric adenopathy by size criteria. Aorta and inferior vena cava are normal in caliber. Abdominal wall: No ventral hernias. Pelvis: No free pelvic fluid. No inguinal hernias or adenopathy. Bones: No suspicious bony lesions. No vertebral body compression fractures. IMPRESSION: 1. Remote splenectomy. 2. No evidence of renal stone, ureteral stone, or hydronephrosis. Kidneys are of normal size. Dictated by: Nemesio Deluna M.D. on 07/24/2020 at 14:55 Approved by: Nemesio Deluna M.D. on 07/24/2020 at 15:00 [facility] Narrative Medical decision making narrative: The patient is a 69-year-old female who presents with a chief complaint of increased creatinine and ESR with history of vasculitis. Her creatinine has increased to 2.8. Her ESR has increased from 30s to 70s this morning to low 100s today in the emergency department. CT KUB was taken to ensure no obstructive findings, which resulted negative. I spoke with Dr. Galvan, the patient's intravenous therapy nurse with [facility], who requested that the patient be transferred to that facility for more specialized care including Rheumatology and nephrology services. I spoke with Dr. Dimitris Mcdonald, the hospitalist at [facility] who kindly accepted the patient for transfer. Coronavirus test is pending at this point. Urinalysis is pending at this point. Per Dr Galvan, patient will receive 1 g of methylprednisolone IV if coronavirus and urinalysis tests are negative. Ice discussed this with the patient and she is okay with plan. Discussed that [facility] is not accepting visitors. Given that patient feels overwhelmed and stressed with health changes, family dynamics politics at this point, Juan SIEGEL in to see patient pending transfer. Patient signed out to Dr Atkins pending urinalysis, coronavirus test and possible steroid administration while waiting for [facility] bed. <Teena Atkins, DO - Last Filed: 07/25/20 08:14> Lab Data Labs: Lab Results 07/24/20 07/24/20 07/24/20 Range/Units 13:59 13:59 13:59 WBC 10.8 (4.5-11.0) X10^3/uL RBC 3.46 L (4.0-5.2) X10^6/uL Hgb 10.9 L (12.0-16.0) g/dL Hct 31.7 L (36-46) % MCV 91.8 (80-100) fL MCH 31.4 (26-34) PG MCHC 34.2 (30-36) % RDW 13.1 (11.6-14.8) % Plt Count 421 H (150-400) X10^3/uL Neut % (Auto) 67.5 (50-75) % Lymph % (Auto) 21.1 L (25-40) % [place] % (Auto) 8.0 (3-14) % Eos % (Auto) 2.7 (2-4) % Baso % (Auto) 0.7 (0-2) % Neut # (Auto) 7300 H (5130-0787) /uL Lymph # (Auto) 2300 (2072-3578) /uL [place] # (Auto) 900 (0-900) /uL Eos # (Auto) 300 (0-450) /uL Baso # (Auto) 100 (0-100) /uL ESR (0-20) MM/HR Sodium 140 (137-145) mmol/L Potassium 3.7 (3.4-5.1) mmol/L Chloride 109 H (98-107) mmol/L Carbon Dioxide 25 (22-32) mmol/L BUN 39 H (7-17) mg/dL Creatinine 2.80 H (0.52-1.04) mg/dL Estimated GFR 16.8 L (>60) mL/min BUN/Creatinine Ratio 13.9 (6-22) Glucose 118 H (80-110) mg/dL Calcium 9.0 (8.4-10.2) mg/dL Magnesium 2.2 (1.6-2.3) mg/dL Total Bilirubin 0.3 (0.2-1.3) mg/dL AST 21 (14-36) IU/L ALT 11 (<35) IU/L Alkaline Phosphatase 70 (38-126) U/L C-Reactive Protein (<1.0) mg/dL Total Protein 7.7 (6.3-8.2) g/dL Albumin 4.1 (3.5-5.0) g/dL Globulin 3.6 (1.7-4.1) g/dL Albumin/Globulin Ratio 1.1 (1.0-2.8) Urine RBC (0-5/HPF) Urine WBC (0-5/HPF) Ur Squamous Epith Cells (0-5/HPF) Amorphous Sediment Urine Bacteria (None) Ur Culture Indicated? SARS-CoV-2 (PCR) (Negative) 07/24/20 07/24/20 07/24/20 Range/Units 13:59 13:59 16:12 WBC (4.5-11.0) X10^3/uL RBC (4.0-5.2) X10^6/uL Hgb (12.0-16.0) g/dL Hct (36-46) % MCV (80-100) fL MCH (26-34) PG MCHC (30-36) % RDW (11.6-14.8) % Plt Count (150-400) X10^3/uL Neut % (Auto) (50-75) % Lymph % (Auto) (25-40) % [place] % (Auto) (3-14) % Eos % (Auto) (2-4) % Baso % (Auto) (0-2) % Neut # (Auto) (5013-8094) /uL Lymph # (Auto) (9578-5284) /uL [place] # (Auto) (0-900) /uL Eos # (Auto) (0-450) /uL Baso # (Auto) (0-100) /uL ESR 104 H (0-20) MM/HR Sodium (137-145) mmol/L Potassium (3.4-5.1) mmol/L Chloride (98-107) mmol/L Carbon Dioxide (22-32) mmol/L BUN (7-17) mg/dL Creatinine (0.52-1.04) mg/dL Estimated GFR (>60) mL/min BUN/Creatinine Ratio (6-22) Glucose (80-110) mg/dL Calcium (8.4-10.2) mg/dL Magnesium (1.6-2.3) mg/dL Total Bilirubin (0.2-1.3) mg/dL AST (14-36) IU/L ALT (<35) IU/L Alkaline Phosphatase (38-126) U/L C-Reactive Protein 0.8 (<1.0) mg/dL Total Protein (6.3-8.2) g/dL Albumin (3.5-5.0) g/dL Globulin (1.7-4.1) g/dL Albumin/Globulin Ratio (1.0-2.8) Urine RBC (0-5/HPF) Urine WBC (0-5/HPF) Ur Squamous Epith Cells (0-5/HPF) Amorphous Sediment Urine Bacteria (None) Ur Culture Indicated? SARS-CoV-2 (PCR) Negative (Negative) 07/24/20 Range/Units 16:40 WBC (4.5-11.0) X10^3/uL RBC (4.0-5.2) X10^6/uL Hgb (12.0-16.0) g/dL Hct (36-46) % MCV (80-100) fL MCH (26-34) PG MCHC (30-36) % RDW (11.6-14.8) % Plt Count (150-400) X10^3/uL Neut % (Auto) (50-75) % Lymph % (Auto) (25-40) % [place] % (Auto) (3-14) % Eos % (Auto) (2-4) % Baso % (Auto) (0-2) % Neut # (Auto) (1128-1087) /uL Lymph # (Auto) (1513-3530) /uL [place] # (Auto) (0-900) /uL Eos # (Auto) (0-450) /uL Baso # (Auto) (0-100) /uL ESR (0-20) MM/HR Sodium (137-145) mmol/L Potassium (3.4-5.1) mmol/L Chloride (98-107) mmol/L Carbon Dioxide (22-32) mmol/L BUN (7-17) mg/dL Creatinine (0.52-1.04) mg/dL Estimated GFR (>60) mL/min BUN/Creatinine Ratio (6-22) Glucose (80-110) mg/dL Calcium (8.4-10.2) mg/dL Magnesium (1.6-2.3) mg/dL Total Bilirubin (0.2-1.3) mg/dL AST (14-36) IU/L ALT (<35) IU/L Alkaline Phosphatase (38-126) U/L C-Reactive Protein (<1.0) mg/dL Total Protein (6.3-8.2) g/dL Albumin (3.5-5.0) g/dL Globulin (1.7-4.1) g/dL Albumin/Globulin Ratio (1.0-2.8) Urine RBC 30-100/hpf H (0-5/HPF) Urine WBC 0-1/hpf (0-5/HPF) Ur Squamous Epith Cells 0-1 /hpf (0-5/HPF) Amorphous Sediment 1+ Urine Bacteria None seen (None) Ur Culture Indicated? Cult not indicated SARS-CoV-2 (PCR) (Negative) Urine Dip Bedside Urine Glucose Negative Bedside Urine Bilirubin - Negative Bedside Urine Ketone - Negative Urine Specific [place] 1.015 Bedside Urine Occult Blood +++ Bedside Urine pH 6.5 Bedside Urine Protein ++ 100 Bedside Urine Urobilinogen - Negative Bedside Urine Nitrite - Negative Bedside Urine Leukocytes - Negative Esterase MDM Narrative Medical decision making narrative: Patient signed out to me by Luciana primary care and see. Patient remains hypertensive is given her dose of nifedipine and dose of labetalol to help with blood pressure. COVID and UA are negative she is given a 1000 mg of methylprednisolone. She has been accepted [facility] going to the ED. Handout to Dr. Bradford. <Adonis Bradford MD - Last Filed: 07/24/20 23:36> Lab Data Labs: Lab Results 07/24/20 07/24/20 07/24/20 Range/Units 13:59 13:59 13:59 WBC 10.8 (4.5-11.0) X10^3/uL RBC 3.46 L (4.0-5.2) X10^6/uL Hgb 10.9 L (12.0-16.0) g/dL Hct 31.7 L (36-46) % MCV 91.8 (80-100) fL MCH 31.4 (26-34) PG MCHC 34.2 (30-36) % RDW 13.1 (11.6-14.8) % Plt Count 421 H (150-400) X10^3/uL Neut % (Auto) 67.5 (50-75) % Lymph % (Auto) 21.1 L (25-40) % [place] % (Auto) 8.0 (3-14) % Eos % (Auto) 2.7 (2-4) % Baso % (Auto) 0.7 (0-2) % Neut # (Auto) 7300 H (9528-3186) /uL Lymph # (Auto) 2300 (4901-8069) /uL [place] # (Auto) 900 (0-900) /uL Eos # (Auto) 300 (0-450) /uL Baso # (Auto) 100 (0-100) /uL ESR (0-20) MM/HR Sodium 140 (137-145) mmol/L Potassium 3.7 (3.4-5.1) mmol/L Chloride 109 H (98-107) mmol/L Carbon Dioxide 25 (22-32) mmol/L BUN 39 H (7-17) mg/dL Creatinine 2.80 H (0.52-1.04) mg/dL Estimated GFR 16.8 L (>60) mL/min BUN/Creatinine Ratio 13.9 (6-22) Glucose 118 H (80-110) mg/dL Calcium 9.0 (8.4-10.2) mg/dL Magnesium 2.2 (1.6-2.3) mg/dL Total Bilirubin 0.3 (0.2-1.3) mg/dL AST 21 (14-36) IU/L ALT 11 (<35) IU/L Alkaline Phosphatase 70 (38-126) U/L C-Reactive Protein (<1.0) mg/dL Total Protein 7.7 (6.3-8.2) g/dL Albumin 4.1 (3.5-5.0) g/dL Globulin 3.6 (1.7-4.1) g/dL Albumin/Globulin Ratio 1.1 (1.0-2.8) Urine RBC (0-5/HPF) Urine WBC (0-5/HPF) Ur Squamous Epith Cells (0-5/HPF) Amorphous Sediment Urine Bacteria (None) Ur Culture Indicated? SARS-CoV-2 (PCR) (Negative) 07/24/20 07/24/20 07/24/20 Range/Units 13:59 13:59 16:12 WBC (4.5-11.0) X10^3/uL RBC (4.0-5.2) X10^6/uL Hgb (12.0-16.0) g/dL Hct (36-46) % MCV (80-100) fL MCH (26-34) PG MCHC (30-36) % RDW (11.6-14.8) % Plt Count (150-400) X10^3/uL Neut % (Auto) (50-75) % Lymph % (Auto) (25-40) % [place] % (Auto) (3-14) % Eos % (Auto) (2-4) % Baso % (Auto) (0-2) % Neut # (Auto) (3772-5182) /uL Lymph # (Auto) (3746-5218) /uL [place] # (Auto) (0-900) /uL Eos # (Auto) (0-450) /uL Baso # (Auto) (0-100) /uL ESR 104 H (0-20) MM/HR Sodium (137-145) mmol/L Potassium (3.4-5.1) mmol/L Chloride (98-107) mmol/L Carbon Dioxide (22-32) mmol/L BUN (7-17) mg/dL Creatinine (0.52-1.04) mg/dL Estimated GFR (>60) mL/min BUN/Creatinine Ratio (6-22) Glucose (80-110) mg/dL Calcium (8.4-10.2) mg/dL Magnesium (1.6-2.3) mg/dL Total Bilirubin (0.2-1.3) mg/dL AST (14-36) IU/L ALT (<35) IU/L Alkaline Phosphatase (38-126) U/L C-Reactive Protein 0.8 (<1.0) mg/dL Total Protein (6.3-8.2) g/dL Albumin (3.5-5.0) g/dL Globulin (1.7-4.1) g/dL Albumin/Globulin Ratio (1.0-2.8) Urine RBC (0-5/HPF) Urine WBC (0-5/HPF) Ur Squamous Epith Cells (0-5/HPF) Amorphous Sediment Urine Bacteria (None) Ur Culture Indicated? SARS-CoV-2 (PCR) Negative (Negative) 07/24/20 Range/Units 16:40 WBC (4.5-11.0) X10^3/uL RBC (4.0-5.2) X10^6/uL Hgb (12.0-16.0) g/dL Hct (36-46) % MCV (80-100) fL MCH (26-34) PG MCHC (30-36) % RDW (11.6-14.8) % Plt Count (150-400) X10^3/uL Neut % (Auto) (50-75) % Lymph % (Auto) (25-40) % [place] % (Auto) (3-14) % Eos % (Auto) (2-4) % Baso % (Auto) (0-2) % Neut # (Auto) (0850-1970) /uL Lymph # (Auto) (6930-2167) /uL [place] # (Auto) (0-900) /uL Eos # (Auto) (0-450) /uL Baso # (Auto) (0-100) /uL ESR (0-20) MM/HR Sodium (137-145) mmol/L Potassium (3.4-5.1) mmol/L Chloride (98-107) mmol/L Carbon Dioxide (22-32) mmol/L BUN (7-17) mg/dL Creatinine (0.52-1.04) mg/dL Estimated GFR (>60) mL/min BUN/Creatinine Ratio (6-22) Glucose (80-110) mg/dL Calcium (8.4-10.2) mg/dL Magnesium (1.6-2.3) mg/dL Total Bilirubin (0.2-1.3) mg/dL AST (14-36) IU/L ALT (<35) IU/L Alkaline Phosphatase (38-126) U/L C-Reactive Protein (<1.0) mg/dL Total Protein (6.3-8.2) g/dL Albumin (3.5-5.0) g/dL Globulin (1.7-4.1) g/dL Albumin/Globulin Ratio (1.0-2.8) Urine RBC 30-100/hpf H (0-5/HPF) Urine WBC 0-1/hpf (0-5/HPF) Ur Squamous Epith Cells 0-1 /hpf (0-5/HPF) Amorphous Sediment 1+ Urine Bacteria None seen (None) Ur Culture Indicated? Cult not indicated SARS-CoV-2 (PCR) (Negative) Urine Dip Bedside Urine Glucose Negative Bedside Urine Bilirubin - Negative Bedside Urine Ketone - Negative Urine Specific [place] 1.015 Bedside Urine Occult Blood +++ Bedside Urine pH 6.5 Bedside Urine Protein ++ 100 Bedside Urine Urobilinogen - Negative Bedside Urine Nitrite - Negative Bedside Urine Leukocytes - Negative Esterase Discharge Plan Departure Patient Disposition: [facility] Clinical Impression: Vasculitis Prescriptions: No Action desonide 0.05 % cream 1 applictn TOP QD-BID PRN (Reason: skin irritation) Qty: 60 RF: 3 nifedipine 30 mg tablet extended release 30 mg PO DAILY Qty: 90 RF: 3 omeprazole 40 mg capsule,delayed release(DR/EC) 40 mg PO DAILY Qty: 30 RF: 3 triamcinolone acetonide 0.1 % ointment 0.1 % Topical QDAYP PRN (Reason: psoriasis) Qty: 80 RF: 3 alendronate [Fosamax] 70 mg tablet 70 mg PO QWEEK Qty: 12 RF: 3 Referrals: Gurwinder Madison ARNP [Primary Care Provider] - <Teena Atkins DO - Last Filed: 07/25/20 08:14> Cosign ED Attending Cosronaldature Attestation: I was immediately available in the department for consultation. Documentation has been reviewed. I agree with assessment and plan.
[2020-07-24 14:45] LABS: C-Reactive Protein Quant 0.8 mg/dL (<1.0)
[2020-07-24] MEDS: SODIUM CHLORIDE 0.9% 1,000 ML 1000 ML IV (15:30)
--- NOTE | 2020-07-24 16:36 | CM.SWNOTE ---
CUT OFF MACHINE OPERATOR note CUT OFF MACHINE OPERATOR consult requested for patient. Patient is a 69 y/o female who presents to ED with abnormal labs and concerns regarding kidney function. Per verbal report from provider OSCAR Tucker, patient has been experiencing multiple significant life stressors, and requests CUT OFF MACHINE OPERATOR consult for discussion and potential referral to therapy. CUT OFF MACHINE OPERATOR enters room and introduces self, role to patient. Patient is A+O x3, states she has been better, and presents with slightly dysthymic affect with normal range and congruency with stated mood. Patient explains she has an autoimmune disorder that flares up when she experiences significant life stress. Patient states this last happened in 2018 and resulted in an inpatient stay at [facility]. Patient reports that she has been stable since that time until 3 months ago. Patient reports that current political climate , a close family member is currently dying, 's recent admission to a hospital in [place], adult children moving into her home, and rift with family over masking/COVID practices have all impacted her stress level during month of June,. Patient reports she tries to make those around her feel positive even if this means compromising her own boundaries. Patient states she wants to be able handle current life stressors better. CUT OFF MACHINE OPERATOR discusses this with patient, validates efforts for the wellbeing of others, and reflects number of significant stressors that patient has experienced in past month. Patient and CUT OFF MACHINE OPERATOR continue to discuss 2-way relationship between physical and mental health. Patient reports she is bummed about current health, but reports that she feels hopeful that she will be able to resume her life following stay at [facility]. Patient reports she has been involved in therapy throughout her life, and expresses interest in therapy again. CUT OFF MACHINE OPERATOR [facility] and explains how to search for clinicians using this resource. Patient denies other needs at this time. Pl: patient to transfer to in [place] for additional care CHRISTAL Sykes
[2020-07-24 17:01] LABS: Bacteria Urine None Seen
[2020-07-24 17:16] LABS: COVID19 -Nasal RAPID Negative (Negative)
[2020-07-24 17:29] LABS: RBC Urine 30-100/HPF (0-5/HPF); WBC Urine 0-1/HPF (0-5/HPF)
[2020-07-24 17:30] LABS: Amorphous Sediment Urine 1+; Culture Indicated Urine Cult Not Indicated; Squamous Epithelial Cell Urine 0-1 /HPF (0-5/HPF)
[2020-07-24] MEDS: NIFEdipine 30 MG TAB ER PO (17:32)
[2020-07-24] MEDS: methylPREDNISolone 1,000 MG in SODIUM CHLORIDE 0.9% 250 ML 258 ML IV (17:54)
[2020-07-24] MEDS: LABETALOL 20 MG/4 ML SYRINGE 10 MG IV (18:39)
== END 2020-07-24 20:00 | disposition short-term general hospital (02) ==
PROVIDERS: Nurse Practitioner Family; Emergency Provider Emergency Medicine; PCP Registered Nurse Diabetes Educator
DX: I77.6 Arteritis, unspecified (principal); I10 Essential (primary) hypertension; Z20.822 Contact with and (suspected) exposure to COVID-19; Z86.79 Personal history of other diseases of the circulatory system; E87.5 Hyperkalemia
CPT/HCPCS: 36415; 74176; 80048; 80053; 81003; 81015; 83735; 85025; 85651; 86140; 87635; 96361; 96365; 96366; 96375; 99283; 99284; C9803; J2930

== ENCOUNTER → 2020-09-27 11:11 | Outpatient (CLI) | payer MEDICARE, OTHER, SELFPAY ==
[2020-09-27 12:58] LABS: Add Manual Diff / Slide Review NO; Basophils Absolute Auto 0 /uL (0-100); Basophils Percent Auto 0.3 % (0-2); Eosinophils Absolute Auto 100 /uL (0-450); Hematocrit 26.7 % (36-46); Hemoglobin 9.1 g/dL (12.0-16.0); Lymphocytes Absolute Auto 1300 /uL (1100-4500); Lymphocytes Percent Auto 12.3 % (25-40); Mean Corpuscular Hemoglobin 31.2 PG (26-34); Mean Corpuscular Volume 91.6 fL (80-100); Monocytes Absolute Auto 1000 /uL (0-900); Neutrophils Absolute Auto 7800 /uL (1500-7000); Neutrophils Percent Auto 76.4 % (50-75); Platelet Count 307 X10^3/uL (150-400); Red Blood Cell Count 2.91 X10^6/uL (4.0-5.2); Red Cell Distribution Width 13.8 % (11.6-14.8); White Blood Cell Count 10.2 X10^3/uL (4.5-11.0)
[2020-09-27 13:23] LABS: Alanine Aminotransferase 9 IU/L (<35); Albumin 3.2 g/dL (3.5-5.0); Albumin Globulin Ratio 1.4 (1.0-2.8); Alkaline Phosphatase 41 U/L (38-126); Aspartate Aminotransferase 15 IU/L (14-36); BUN Creatinine Ratio 13.8 (6-22); Bilirubin Total 0.4 mg/dL (0.2-1.3); Blood Urea Nitrogen 29 mg/dL (7-17); Calcium 8.9 mg/dL (8.4-10.2); Carbon Dioxide 20 mmol/L (22-32); Chloride 109 mmol/L (98-107); Estimated Glomerular Filt Rate 23.4 mL/min (>60); Globulin 2.3 g/dL (1.7-4.1); Glucose 82 mg/dL (80-110); HEMOLYSIS < 15 (0-50); Potassium 3.6 mmol/L (3.4-5.1); Sodium 136 mmol/L (137-145); Total Protein 5.5 g/dL (6.3-8.2)
[2020-09-27 14:15] LABS: Erythrocyte Sedimentation Rate 34 MM/HR (0-20)
== END ==
PROVIDERS: PCP Registered Nurse Diabetes Educator; Referring Provider Student in an Organized Health Care Education/Training Program; Visit Provider Student in an Organized Health Care Education/Training Program
DX: I77.6 Arteritis, unspecified (principal)
CPT/HCPCS: 36415; 80053; 85025; 85651; 86140

== ENCOUNTER → 2020-10-18 11:15 | Outpatient (CLI) | payer MEDICARE, OTHER, SELFPAY ==
[2020-10-18 12:05] LABS: Add Manual Diff / Slide Review NO; Basophils Absolute Auto 0 /uL (0-100); Basophils Percent Auto 0.3 % (0-2); Eosinophils Absolute Auto 100 /uL (0-450); Eosinophils Percent Auto 0.8 % (2-4); Hematocrit 26.5 % (36-46); Hemoglobin 8.8 g/dL (12.0-16.0); Lymphocytes Absolute Auto 800 /uL (1100-4500); Lymphocytes Percent Auto 7.2 % (25-40); Mean Corpuscular HGB Conc 33.3 % (30-36); Mean Corpuscular Hemoglobin 29.9 PG (26-34); Mean Corpuscular Volume 89.8 fL (80-100); Monocytes Absolute Auto 800 /uL (0-900); Monocytes Percent Auto 6.9 % (3-14); Neutrophils Absolute Auto 9300 /uL (1500-7000); Neutrophils Percent Auto 84.8 % (50-75); Platelet Count 314 X10^3/uL (150-400); Red Blood Cell Count 2.95 X10^6/uL (4.0-5.2)
[2020-10-18 12:23] LABS: Iron 91 ug/dL (37-170)
[2020-10-18 12:28] LABS: Albumin 3.3 g/dL (3.5-5.0); BUN Creatinine Ratio 14.1 (6-22); Blood Urea Nitrogen 28 mg/dL (7-17); Calcium 8.8 mg/dL (8.4-10.2); Carbon Dioxide 22 mmol/L (22-32); Chloride 107 mmol/L (98-107); Estimated Glomerular Filt Rate 24.8 mL/min (>60); Glucose 94 mg/dL (80-110); HEMOLYSIS < 15 (0-50); Phosphorous 3.1 mg/dL (2.8-4.1); Potassium 3.4 mmol/L (3.4-5.1); Sodium 138 mmol/L (137-145)
[2020-10-18 12:36] LABS: Total Iron Binding Capacity 227 ug/dL (265-497)
[2020-10-18 13:01] LABS: Ferritin 143 ng/mL (11-264)
[2020-10-18 13:32] LABS: Folate > 20.0 ng/mL (2.76-20.0); Vitamin B12 873 pg/mL (239-931)
== END ==
PROVIDERS: PCP Registered Nurse Diabetes Educator; Referring Provider Internal Medicine Nephrology; Visit Provider Internal Medicine Nephrology
DX: D64.9 Anemia, unspecified (principal)
CPT/HCPCS: 36415; 80069; 82607; 82728; 82746; 83540; 83550; 85025

== ENCOUNTER → 2020-11-04 12:54 | Outpatient (CLI) | payer MEDICARE, OTHER, SELFPAY ==
[2020-11-04 13:33] LABS: Add Manual Diff / Slide Review NO; Basophils Absolute Auto 100 /uL (0-100); Basophils Percent Auto 0.5 % (0-2); Eosinophils Absolute Auto 100 /uL (0-450); Eosinophils Percent Auto 0.9 % (2-4); Hematocrit 27.8 % (36-46); Hemoglobin 8.9 g/dL (12.0-16.0); Lymphocytes Absolute Auto 500 /uL (1100-4500); Lymphocytes Percent Auto 4.3 % (25-40); Mean Corpuscular HGB Conc 32.2 % (30-36); Mean Corpuscular Hemoglobin 28.7 PG (26-34); Mean Corpuscular Volume 89.1 fL (80-100); Monocytes Absolute Auto 700 /uL (0-900); Monocytes Percent Auto 6.1 % (3-14); Neutrophils Absolute Auto 9900 /uL (1500-7000); Neutrophils Percent Auto 88.2 % (50-75); Platelet Count 467 X10^3/uL (150-400); Red Blood Cell Count 3.11 X10^6/uL (4.0-5.2); Red Cell Distribution Width 14.1 % (11.6-14.8); White Blood Cell Count 11.2 X10^3/uL (4.5-11.0)
[2020-11-04 13:35] LABS: Appearance Urine UA CLEAR; Bilirubin Urine UA NEGATIVE (NEGATIVE); Color Urine UA YELLOW; Glucose Urine UA NEGATIVE (Negative); Ketones Urine UA NEGATIVE (NEGATIVE); Leukocyte Esterase Urine UA NEGATIVE (NEGATIVE); Nitrite Urine UA NEGATIVE (Negative); Occult Blood Urine UA 3+ (Negative); Protein Urine UA 3+ (Negative); Specific Gravity Urine UA 1.025 (1.000-1.035); Urobilinogen Urine UA 0.2 E.U./dL (0.2)
[2020-11-04 13:48] LABS: Bacteria Urine Few (2-10); C-Reactive Protein Quant 2.2 mg/dL (<1.0); RBC Urine 10-30/HPF (0-5/HPF); Squamous Epithelial Cell Urine 0-1 /HPF (0-5/HPF); WBC Urine 1-5/HPF (0-5/HPF)
[2020-11-04 13:49] LABS: Culture Indicated Urine Cult Not Indicated
[2020-11-04 13:51] LABS: Iron 91 ug/dL (37-170)
[2020-11-04 13:57] LABS: Erythrocyte Sedimentation Rate 72 MM/HR (0-20)
[2020-11-04 14:00] LABS: Percent Iron Saturation 41 % (15-50); Total Iron Binding Capacity 220 ug/dL (265-497)
[2020-11-04 16:57] LABS: Creatinine Urine Random 158.3 mg/dL
[2020-11-04 17:07] LABS: Protein (Total) Urine Random 364 mg/dL (0-12); Protein Creatinine Ratio Urine 2.29 GRAM/24H
[2020-11-05 05:11] LABS: Complement C3 151 mg/dL (82-167)
== END ==
PROVIDERS: PCP Registered Nurse Diabetes Educator; Referring Provider Student in an Organized Health Care Education/Training Program; Visit Provider Student in an Organized Health Care Education/Training Program
DX: I77.6 Arteritis, unspecified (principal)
CPT/HCPCS: 36415; 81001; 82570; 83540; 83550; 84156; 85025; 85651; 86140; 86160

== ENCOUNTER → 2020-11-19 11:28 | Outpatient (CLI) | payer MEDICARE, OTHER, SELFPAY ==
[2020-11-19 12:14] LABS: Add Manual Diff / Slide Review NO; Basophils Absolute Auto 100 /uL (0-100); Basophils Percent Auto 0.9 % (0-2); Eosinophils Absolute Auto 100 /uL (0-450); Eosinophils Percent Auto 0.6 % (2-4); Hematocrit 26.1 % (36-46); Hemoglobin 8.6 g/dL (12.0-16.0); Lymphocytes Absolute Auto 1100 /uL (1100-4500); Lymphocytes Percent Auto 11.1 % (25-40); Mean Corpuscular Hemoglobin 29.1 PG (26-34); Mean Corpuscular Volume 88.4 fL (80-100); Monocytes Absolute Auto 1000 /uL (0-900); Monocytes Percent Auto 9.8 % (3-14); Neutrophils Absolute Auto 7700 /uL (1500-7000); Neutrophils Percent Auto 77.6 % (50-75); Platelet Count 338 X10^3/uL (150-400); Red Blood Cell Count 2.96 X10^6/uL (4.0-5.2); Red Cell Distribution Width 14.5 % (11.6-14.8); White Blood Cell Count 9.9 X10^3/uL (4.5-11.0)
[2020-11-19 12:36] LABS: Erythrocyte Sedimentation Rate 47 MM/HR (0-20)
[2020-11-19 12:45] LABS: Iron 91 ug/dL (37-170)
[2020-11-19 12:46] LABS: Albumin 3.2 g/dL (3.5-5.0); BUN Creatinine Ratio 10.2 (6-22); Blood Urea Nitrogen 20 mg/dL (7-17); Calcium 8.9 mg/dL (8.4-10.2); Carbon Dioxide 20 mmol/L (22-32); Chloride 106 mmol/L (98-107); Estimated Glomerular Filt Rate 25.3 mL/min (>60); Glucose 99 mg/dL (80-110); HEMOLYSIS < 15 (0-50); Phosphorous 2.5 mg/dL (2.8-4.1); Potassium 3.5 mmol/L (3.4-5.1); Sodium 136 mmol/L (137-145)
[2020-11-19 12:47] LABS: Alanine Aminotransferase 8 IU/L (<35); Albumin 3.1 g/dL (3.5-5.0); Albumin Globulin Ratio 1.3 (1.0-2.8); Alkaline Phosphatase 49 U/L (38-126); Aspartate Aminotransferase 13 IU/L (14-36); BUN Creatinine Ratio 10.8 (6-22); Bilirubin Total 0.3 mg/dL (0.2-1.3); Blood Urea Nitrogen 21 mg/dL (7-17); C-Reactive Protein Quant 2.1 mg/dL (<1.0); Calcium 9.1 mg/dL (8.4-10.2); Carbon Dioxide 22 mmol/L (22-32); Chloride 106 mmol/L (98-107); Estimated Glomerular Filt Rate 25.6 mL/min (>60); Globulin 2.3 g/dL (1.7-4.1); Glucose 99 mg/dL (80-110); HEMOLYSIS < 15 (0-50); Potassium 3.7 mmol/L (3.4-5.1); Sodium 135 mmol/L (137-145); Total Protein 5.4 g/dL (6.3-8.2)
[2020-11-19 12:54] LABS: Appearance Urine UA CLEAR; Bilirubin Urine UA NEGATIVE (NEGATIVE); Color Urine UA YELLOW; Glucose Urine UA NEGATIVE (Negative); Ketones Urine UA NEGATIVE (NEGATIVE); Leukocyte Esterase Urine UA NEGATIVE (NEGATIVE); Nitrite Urine UA NEGATIVE (Negative); Occult Blood Urine UA 3+ (Negative); Protein Urine UA 2+ (Negative); Urobilinogen Urine UA 0.2 E.U./dL (0.2)
[2020-11-19 12:55] LABS: Percent Iron Saturation 48 % (15-50); Total Iron Binding Capacity 190 ug/dL (265-497)
[2020-11-19 12:56] LABS: pH Urine UA 5.5 (4.5-8.0)
[2020-11-19 13:06] LABS: Amorphous Sediment Urine 1+; Bacteria Urine Moderate (10-30); RBC Urine 1-5/HPF (0-5/HPF); Squamous Epithelial Cell Urine 0-1 /HPF (0-5/HPF); WBC Urine 1-5/HPF (0-5/HPF)
[2020-11-19 17:18] LABS: Creatinine Urine Random 130.8 mg/dL
[2020-11-19 17:27] LABS: Protein (Total) Urine Random 223 mg/dL (0-12)
[2020-11-20 04:36] LABS: Complement C3 123 mg/dL (82-167)
== END ==
PROVIDERS: PCP Registered Nurse Diabetes Educator; Referring Provider Internal Medicine Nephrology; Visit Provider Student in an Organized Health Care Education/Training Program
DX: I77.6 Arteritis, unspecified (principal); N05.7 Unspecified nephritic syndrome with diffuse crescentic glomerulonephritis; E87.6 Hypokalemia
CPT/HCPCS: 36415; 80053; 80069; 81001; 82570; 83540; 83550; 84156; 85025; 85651; 86140; 86160; 87086

== ENCOUNTER → 2020-12-05 13:14 | Outpatient (CLI) | payer MEDICARE, OTHER, SELFPAY ==
[2020-12-05 13:26] LABS: Bacteria Urine None Seen
[2020-12-05 14:57] LABS: Add Manual Diff / Slide Review NO; Basophils Absolute Auto 0 /uL (0-100); Basophils Percent Auto 0.3 % (0-2); Eosinophils Absolute Auto 0 /uL (0-450); Eosinophils Percent Auto 0.3 % (2-4); Hematocrit 29.8 % (36-46); Hemoglobin 9.4 g/dL (12.0-16.0); Lymphocytes Absolute Auto 600 /uL (1100-4500); Lymphocytes Percent Auto 4.9 % (25-40); Mean Corpuscular HGB Conc 31.5 % (30-36); Mean Corpuscular Hemoglobin 28.3 PG (26-34); Mean Corpuscular Volume 89.7 fL (80-100); Monocytes Absolute Auto 300 /uL (0-900); Monocytes Percent Auto 2.8 % (3-14); Neutrophils Absolute Auto 11200 /uL (1500-7000); Neutrophils Percent Auto 91.7 % (50-75); Platelet Count 413 X10^3/uL (150-400); Red Blood Cell Count 3.32 X10^6/uL (4.0-5.2); Red Cell Distribution Width 15.3 % (11.6-14.8); White Blood Cell Count 12.2 X10^3/uL (4.5-11.0)
[2020-12-05 14:59] LABS: Appearance Urine UA CLEAR; Bilirubin Urine UA NEGATIVE (NEGATIVE); Color Urine UA YELLOW; Glucose Urine UA NEGATIVE (Negative); Ketones Urine UA NEGATIVE (NEGATIVE); Leukocyte Esterase Urine UA NEGATIVE (NEGATIVE); Nitrite Urine UA NEGATIVE (Negative); Occult Blood Urine UA 3+ (Negative); Protein Urine UA 2+ (Negative); Urobilinogen Urine UA 0.2 E.U./dL (0.2)
[2020-12-05 15:09] LABS: Alanine Aminotransferase 11 IU/L (<35); Albumin 3.8 g/dL (3.5-5.0); Albumin Globulin Ratio 1.5 (1.0-2.8); Alkaline Phosphatase 42 U/L (38-126); Aspartate Aminotransferase 16 IU/L (14-36); BUN Creatinine Ratio 12.4 (6-22); Bilirubin Total 0.4 mg/dL (0.2-1.3); Blood Urea Nitrogen 21 mg/dL (7-17); C-Reactive Protein Quant 0.5 mg/dL (<1.0); Calcium 9.3 mg/dL (8.4-10.2); Carbon Dioxide 19 mmol/L (22-32); Chloride 108 mmol/L (98-107); Globulin 2.5 g/dL (1.7-4.1); Glucose 91 mg/dL (80-110); HEMOLYSIS < 15 (0-50); Potassium 4.4 mmol/L (3.4-5.1); Sodium 136 mmol/L (137-145); Total Protein 6.3 g/dL (6.3-8.2)
[2020-12-05 15:16] LABS: Amorphous Sediment Urine 1+; Culture Indicated Urine Cult Not Indicated; RBC Urine 1-5/HPF (0-5/HPF); Squamous Epithelial Cell Urine 0-1 /HPF (0-5/HPF)
[2020-12-05 15:25] LABS: Iron 98 ug/dL (37-170)
[2020-12-05 15:37] LABS: Percent Iron Saturation 43 % (15-50); Total Iron Binding Capacity 229 ug/dL (265-497)
[2020-12-05 15:50] LABS: Erythrocyte Sedimentation Rate 79 MM/HR (0-20)
[2020-12-05 16:35] LABS: Creatinine Urine Random 78.9 mg/dL
[2020-12-05 16:47] LABS: Protein (Total) Urine Random 239 mg/dL (0-12); Protein Creatinine Ratio Urine 3.02 GRAM/24H
[2020-12-06 07:48] LABS: Complement C3 120 mg/dL (82-167)
== END ==
PROVIDERS: PCP Registered Nurse Diabetes Educator; Referring Provider Student in an Organized Health Care Education/Training Program; Visit Provider Student in an Organized Health Care Education/Training Program
DX: I77.6 Arteritis, unspecified (principal)
CPT/HCPCS: 36415; 80053; 81001; 82570; 83540; 83550; 84156; 85025; 85651; 86140; 86160

== ENCOUNTER → 2021-01-09 14:25 | Outpatient (CLI) | payer MEDICARE, OTHER, SELFPAY ==
[2021-01-09 14:43] LABS: Bacteria Urine None Seen
[2021-01-09 15:05] LABS: Add Manual Diff / Slide Review NO; Basophils Absolute Auto 0 /uL (0-100); Basophils Percent Auto 0.4 % (0-2); Eosinophils Absolute Auto 0 /uL (0-450); Eosinophils Percent Auto 0.3 % (2-4); Hematocrit 33.6 % (36-46); Hemoglobin 10.6 g/dL (12.0-16.0); Lymphocytes Absolute Auto 300 /uL (1100-4500); Lymphocytes Percent Auto 3.4 % (25-40); Mean Corpuscular HGB Conc 31.7 % (30-36); Mean Corpuscular Hemoglobin 28.4 PG (26-34); Mean Corpuscular Volume 89.7 fL (80-100); Monocytes Absolute Auto 300 /uL (0-900); Monocytes Percent Auto 2.7 % (3-14); Neutrophils Absolute Auto 8900 /uL (1500-7000); Neutrophils Percent Auto 93.2 % (50-75); Platelet Count 391 X10^3/uL (150-400); Red Blood Cell Count 3.75 X10^6/uL (4.0-5.2); Red Cell Distribution Width 15.8 % (11.6-14.8); White Blood Cell Count 9.5 X10^3/uL (4.5-11.0)
[2021-01-09 15:24] LABS: Alanine Aminotransferase 13 IU/L (<35); Albumin Globulin Ratio 1.6 (1.0-2.8); Alkaline Phosphatase 41 U/L (38-126); Aspartate Aminotransferase 19 IU/L (14-36); Bilirubin Total 0.3 mg/dL (0.2-1.3); Blood Urea Nitrogen 23 mg/dL (7-17); C-Reactive Protein Quant 0.7 mg/dL (<1.0); Calcium 9.6 mg/dL (8.4-10.2); Carbon Dioxide 21 mmol/L (22-32); Chloride 109 mmol/L (98-107); Erythrocyte Sedimentation Rate 37 MM/HR (0-20); Estimated Glomerular Filt Rate 25.9 mL/min (>60); Globulin 2.5 g/dL (1.7-4.1); Glucose 120 mg/dL (80-110); HEMOLYSIS < 15 (0-50); Sodium 137 mmol/L (137-145); Total Protein 6.5 g/dL (6.3-8.2)
[2021-01-09 15:35] LABS: Potassium 5.6 mmol/L (3.4-5.1)
[2021-01-09 15:58] LABS: Appearance Urine UA CLEAR; Bilirubin Urine UA NEGATIVE (NEGATIVE); Color Urine UA YELLOW; Glucose Urine UA NEGATIVE (Negative); Ketones Urine UA NEGATIVE (NEGATIVE); Leukocyte Esterase Urine UA NEGATIVE (NEGATIVE); Nitrite Urine UA NEGATIVE (Negative); Occult Blood Urine UA 3+ (Negative); Protein Urine UA 2+ (Negative); Specific Gravity Urine UA 1.015 (1.000-1.035); Urobilinogen Urine UA 0.2 E.U./dL (0.2)
[2021-01-09 16:01] LABS: Culture Indicated Urine Cult Not Indicated; RBC Urine 5-10/HPF (0-5/HPF); Squamous Epithelial Cell Urine 5-10 /HPF (0-5/HPF); WBC Urine 1-5/HPF (0-5/HPF)
[2021-01-09 16:17] LABS: Creatinine Urine Random 93.1 mg/dL; Protein (Total) Urine Random 170 mg/dL (0-12); Protein Creatinine Ratio Urine 1.82 GRAM/24H
[2021-01-10 06:16] LABS: Complement C3 123 mg/dL (82-167)
== END ==
PROVIDERS: PCP Registered Nurse Diabetes Educator; Referring Provider Student in an Organized Health Care Education/Training Program; Visit Provider Student in an Organized Health Care Education/Training Program
DX: L95.0 Livedoid vasculitis (principal)
CPT/HCPCS: 36415; 80053; 81001; 82570; 84156; 85025; 85651; 86140; 86160

== ENCOUNTER → 2021-02-10 15:08 | Outpatient (CLI) | payer MEDICARE, OTHER, SELFPAY ==
[2021-02-10 15:18] LABS: Bacteria Urine None Seen; WBC Urine None Seen (0-5/HPF)
[2021-02-10 16:45] LABS: Add Manual Diff / Slide Review NO; Basophils Absolute Auto 100 /uL (0-100); Basophils Percent Auto 0.8 % (0-2); Eosinophils Absolute Auto 0 /uL (0-450); Eosinophils Percent Auto 0.4 % (2-4); Hematocrit 34.5 % (36-46); Hemoglobin 10.9 g/dL (12.0-16.0); Lymphocytes Absolute Auto 500 /uL (1100-4500); Lymphocytes Percent Auto 6.8 % (25-40); Mean Corpuscular HGB Conc 31.7 % (30-36); Mean Corpuscular Hemoglobin 28.2 PG (26-34); Mean Corpuscular Volume 89.1 fL (80-100); Monocytes Absolute Auto 400 /uL (0-900); Monocytes Percent Auto 5.1 % (3-14); Neutrophils Absolute Auto 6900 /uL (1500-7000); Neutrophils Percent Auto 86.9 % (50-75); Platelet Count 406 X10^3/uL (150-400); Red Blood Cell Count 3.87 X10^6/uL (4.0-5.2); Red Cell Distribution Width 14.9 % (11.6-14.8); White Blood Cell Count 7.9 X10^3/uL (4.5-11.0)
[2021-02-10 17:10] LABS: Alanine Aminotransferase 17 IU/L (<35); Albumin 4.1 g/dL (3.5-5.0); Albumin Globulin Ratio 1.6 (1.0-2.8); Alkaline Phosphatase 54 U/L (38-126); Aspartate Aminotransferase 20 IU/L (14-36); BUN Creatinine Ratio 15.7 (6-22); Bilirubin Total 0.3 mg/dL (0.2-1.3); Blood Urea Nitrogen 37 mg/dL (7-17); C-Reactive Protein Quant 1.2 mg/dL (<1.0); Calcium 9.5 mg/dL (8.4-10.2); Carbon Dioxide 20 mmol/L (22-32); Chloride 108 mmol/L (98-107); Estimated Glomerular Filt Rate 20.5 mL/min (>60); Globulin 2.6 g/dL (1.7-4.1); Glucose 100 mg/dL (80-110); HEMOLYSIS < 15 (0-50); Sodium 135 mmol/L (137-145); Total Protein 6.7 g/dL (6.3-8.2)
[2021-02-10 17:26] LABS: Appearance Urine UA CLEAR; Bilirubin Urine UA NEGATIVE (NEGATIVE); Color Urine UA YELLOW; Glucose Urine UA NEGATIVE (Negative); Ketones Urine UA NEGATIVE (NEGATIVE); Leukocyte Esterase Urine UA NEGATIVE (NEGATIVE); Nitrite Urine UA NEGATIVE (Negative); Occult Blood Urine UA 2+ (Negative); Protein Urine UA 2+ (Negative); Specific Gravity Urine UA 1.015 (1.000-1.035); Urobilinogen Urine UA 0.2 E.U./dL (0.2)
[2021-02-10 17:47] LABS: Creatinine Urine Random 112.7 mg/dL; Potassium 5.6 mmol/L (3.4-5.1)
[2021-02-10 17:49] LABS: pH Urine UA 5.5 (4.5-8.0)
[2021-02-10 17:53] LABS: Culture Indicated Urine Cult Not Indicated; RBC Urine 5-10/HPF (0-5/HPF); Squamous Epithelial Cell Urine 1-5 /HPF (0-5/HPF)
[2021-02-13 16:32] LABS: Alpha-1 Globulin, Ur 0.8 % (.); Beta Globulin, Ur 6.5 % (.); Gamma Globulin, Ur 2.1 % (.); M-Spike % Not Observed % (Not Observed); Urine Total Protein 67.5 mg/dL (Not Estab.)
== END ==
PROVIDERS: PCP Registered Nurse Diabetes Educator; Referring Provider Internal Medicine Nephrology; Visit Provider Internal Medicine Nephrology
DX: I77.6 Arteritis, unspecified (principal)
CPT/HCPCS: 36415; 80053; 81001; 82570; 84156; 84166; 85025; 86140

== ENCOUNTER → 2021-02-27 11:08 | Outpatient (CLI) | payer MEDICARE, OTHER, SELFPAY ==
[2021-02-27 12:11] LABS: Add Manual Diff / Slide Review NO; Basophils Absolute Auto 100 /uL (0-100); Basophils Percent Auto 0.6 % (0-2); Eosinophils Absolute Auto 500 /uL (0-450); Eosinophils Percent Auto 5.5 % (2-4); Hematocrit 34.5 % (36-46); Hemoglobin 11.1 g/dL (12.0-16.0); Lymphocytes Absolute Auto 1200 /uL (1100-4500); Lymphocytes Percent Auto 12.9 % (25-40); Mean Corpuscular HGB Conc 32.2 % (30-36); Mean Corpuscular Hemoglobin 28.3 PG (26-34); Monocytes Absolute Auto 1000 /uL (0-900); Monocytes Percent Auto 11.3 % (3-14); Neutrophils Absolute Auto 6400 /uL (1500-7000); Neutrophils Percent Auto 69.7 % (50-75); Platelet Count 496 X10^3/uL (150-400); Red Blood Cell Count 3.92 X10^6/uL (4.0-5.2); Red Cell Distribution Width 15.3 % (11.6-14.8); White Blood Cell Count 9.1 X10^3/uL (4.5-11.0)
[2021-02-27 12:12] LABS: Bilirubin Urine UA NEGATIVE (NEGATIVE); Color Urine UA YELLOW; Glucose Urine UA NEGATIVE (Negative); Ketones Urine UA NEGATIVE (NEGATIVE); Leukocyte Esterase Urine UA TRACE (NEGATIVE); Nitrite Urine UA NEGATIVE (Negative); Occult Blood Urine UA 3+ (Negative); Protein Urine UA 1+ (Negative); Specific Gravity Urine UA 1.015 (1.000-1.035); Urobilinogen Urine UA 0.2 E.U./dL (0.2)
[2021-02-27 12:20] LABS: Alanine Aminotransferase 11 IU/L (<35); Albumin Globulin Ratio 1.5 (1.0-2.8); Alkaline Phosphatase 51 U/L (38-126); Aspartate Aminotransferase 21 IU/L (14-36); BUN Creatinine Ratio 15.7 (6-22); Bilirubin Total 0.4 mg/dL (0.2-1.3); Blood Urea Nitrogen 29 mg/dL (7-17); Calcium 9.8 mg/dL (8.4-10.2); Carbon Dioxide 23 mmol/L (22-32); Chloride 108 mmol/L (98-107); Globulin 2.6 g/dL (1.7-4.1); Glucose 99 mg/dL (80-110); HEMOLYSIS < 15 (0-50); Potassium 5.1 mmol/L (3.4-5.1); Sodium 139 mmol/L (137-145); Total Protein 6.6 g/dL (6.3-8.2)
[2021-02-27 12:34] LABS: Erythrocyte Sedimentation Rate 46 MM/HR (0-20)
[2021-02-27 12:37] LABS: Creatinine Urine Random 135.9 mg/dL; Protein (Total) Urine Random 70 mg/dL (0-12)
[2021-02-27 12:41] LABS: Appearance Urine UA Slightly Cloudy; pH Urine UA 5.5 (4.5-8.0)
[2021-02-27 12:43] LABS: Amorphous Sediment Urine 1+; RBC Urine 1-5/HPF (0-5/HPF); Squamous Epithelial Cell Urine 5-10 /HPF (0-5/HPF); WBC Urine 1-5/HPF (0-5/HPF)
[2021-02-27 12:44] LABS: Bacteria Urine Occasional (0-1); Culture Indicated Urine Specimen Cultured; Mucus Urine 1+ (Negative)
[2021-02-28 04:36] LABS: Complement C3 131 mg/dL (82-167)
== END ==
PROVIDERS: PCP Registered Nurse Diabetes Educator; Referring Provider Student in an Organized Health Care Education/Training Program; Visit Provider Student in an Organized Health Care Education/Training Program
DX: L95.9 Vasculitis limited to the skin, unspecified (principal)
CPT/HCPCS: 36415; 80053; 81001; 82570; 84156; 85025; 85651; 86140; 86160; 87086

== ENCOUNTER → 2021-05-29 15:15 | Outpatient (CLI) | payer MEDICARE, OTHER, SELFPAY ==
[2021-05-29 16:24] LABS: Add Manual Diff / Slide Review NO; Basophils Absolute Auto 100 /uL (0-100); Basophils Percent Auto 0.9 % (0-2); Eosinophils Absolute Auto 100 /uL (0-450); Eosinophils Percent Auto 2.2 % (2-4); Hematocrit 34.2 % (36-46); Hemoglobin 11.2 g/dL (12.0-16.0); Lymphocytes Absolute Auto 1800 /uL (1100-4500); Mean Corpuscular HGB Conc 32.8 % (30-36); Mean Corpuscular Hemoglobin 28.5 PG (26-34); Mean Corpuscular Volume 86.8 fL (80-100); Monocytes Absolute Auto 700 /uL (0-900); Monocytes Percent Auto 10.2 % (3-14); Neutrophils Absolute Auto 3900 /uL (1500-7000); Neutrophils Percent Auto 59.7 % (50-75); Platelet Count 339 X10^3/uL (150-400); Red Blood Cell Count 3.94 X10^6/uL (4.0-5.2); Red Cell Distribution Width 15.5 % (11.6-14.8); White Blood Cell Count 6.5 X10^3/uL (4.5-11.0)
[2021-05-29 16:31] LABS: Appearance Urine UA CLEAR; Bilirubin Urine UA NEGATIVE (NEGATIVE); Color Urine UA YELLOW; Glucose Urine UA NEGATIVE (Negative); Ketones Urine UA NEGATIVE (NEGATIVE); Leukocyte Esterase Urine UA NEGATIVE (NEGATIVE); Nitrite Urine UA NEGATIVE (Negative); Occult Blood Urine UA 1+ (Negative); Protein Urine UA 2+ (Negative); Urobilinogen Urine UA 0.2 E.U./dL (0.2)
[2021-05-29 16:58] LABS: pH Urine UA 5.5 (4.5-8.0)
[2021-05-29 17:16] LABS: Alanine Aminotransferase 13 IU/L (<35); Albumin 4.2 g/dL (3.5-5.0); Albumin Globulin Ratio 1.5 (1.0-2.8); Alkaline Phosphatase 56 U/L (38-126); Aspartate Aminotransferase 25 IU/L (14-36); BUN Creatinine Ratio 23.3 (6-22); Bilirubin Total 0.3 mg/dL (0.2-1.3); Blood Urea Nitrogen 45 mg/dL (7-17); Calcium 9.7 mg/dL (8.4-10.2); Carbon Dioxide 28 mmol/L (22-32); Chloride 105 mmol/L (98-107); Estimated Glomerular Filt Rate 25.7 mL/min (>60); Globulin 2.8 g/dL (1.7-4.1); Glucose 106 mg/dL (80-110); HEMOLYSIS < 15 (0-50); Potassium 5.1 mmol/L (3.4-5.1); Sodium 141 mmol/L (137-145)
[2021-05-29 17:33] LABS: Creatinine Urine Random 41.9 mg/dL; Protein (Total) Urine Random 137 mg/dL (0-12)
[2021-05-29 17:56] LABS: Bacteria Urine None Seen; Culture Indicated Urine Cult Not Indicated; RBC Urine 0-1/HPF (0-5/HPF); Squamous Epithelial Cell Urine 0-1 /HPF (0-5/HPF); WBC Urine None Seen (0-5/HPF)
[2021-05-29 19:42] LABS: Microalbumin Urine Random 83.3 mg/dL (0-1.6)
[2021-05-30 03:36] LABS: Complement C3 119 mg/dL (82-167)
[2021-06-03 14:01] LABS: Cytoplasmic C-ANCA <1:20 titer (Neg:<1:20); Perinuclear P-ANCA <1:20 titer (Neg:<1:20)
== END ==
PROVIDERS: PCP Registered Nurse Diabetes Educator; Referring Provider Internal Medicine Nephrology; Visit Provider Internal Medicine Nephrology
DX: I77.6 Arteritis, unspecified (principal)
CPT/HCPCS: 36415; 80053; 81001; 82043; 82570; 84156; 85025; 86160; 86256

== ENCOUNTER → 2021-07-21 11:48 | Outpatient (CLI) | payer MEDICARE, OTHER, SELFPAY ==
[2021-07-21 12:10] LABS: Add Manual Diff / Slide Review NO; Basophils Absolute Auto 100 /uL (0-100); Eosinophils Absolute Auto 200 /uL (0-450); Eosinophils Percent Auto 3.5 % (2-4); Hematocrit 30.2 % (36-46); Hemoglobin 10.1 g/dL (12.0-16.0); Lymphocytes Absolute Auto 1300 /uL (1100-4500); Lymphocytes Percent Auto 27.2 % (25-40); Mean Corpuscular HGB Conc 33.5 % (30-36); Mean Corpuscular Hemoglobin 28.7 PG (26-34); Mean Corpuscular Volume 85.8 fL (80-100); Monocytes Absolute Auto 500 /uL (0-900); Monocytes Percent Auto 9.3 % (3-14); Neutrophils Absolute Auto 2900 /uL (1500-7000); Platelet Count 318 X10^3/uL (150-400); Red Blood Cell Count 3.52 X10^6/uL (4.0-5.2); Red Cell Distribution Width 14.9 % (11.6-14.8); White Blood Cell Count 4.9 X10^3/uL (4.5-11.0)
[2021-07-21 12:20] LABS: Appearance Urine UA CLEAR; Bilirubin Urine UA NEGATIVE (NEGATIVE); Color Urine UA YELLOW; Glucose Urine UA NEGATIVE (Negative); Ketones Urine UA NEGATIVE (NEGATIVE); Leukocyte Esterase Urine UA NEGATIVE (NEGATIVE); Nitrite Urine UA NEGATIVE (Negative); Occult Blood Urine UA TRACE-INTACT (Negative); Protein Urine UA 1+ (Negative); Urobilinogen Urine UA 0.2 E.U./dL (0.2)
[2021-07-21 12:31] LABS: Erythrocyte Sedimentation Rate 39 MM/HR (0-20)
[2021-07-21 12:50] LABS: Alanine Aminotransferase 10 IU/L (<35); Albumin Globulin Ratio 1.8 (1.0-2.8); Alkaline Phosphatase 41 U/L (38-126); Aspartate Aminotransferase 21 IU/L (14-36); BUN Creatinine Ratio 20.4 (6-22); Bilirubin Total 0.4 mg/dL (0.2-1.3); Blood Urea Nitrogen 43 mg/dL (7-17); C-Reactive Protein Quant < 0.5 mg/dL (<1.0); Calcium 9.8 mg/dL (8.4-10.2); Carbon Dioxide 26 mmol/L (22-32); Chloride 106 mmol/L (98-107); Estimated Glomerular Filt Rate 23.2 mL/min (>60); Globulin 2.2 g/dL (1.7-4.1); Glucose 102 mg/dL (80-110); HEMOLYSIS < 15 (0-50); Potassium 4.9 mmol/L (3.4-5.1); Sodium 138 mmol/L (137-145); Total Protein 6.2 g/dL (6.3-8.2)
[2021-07-21 13:24] LABS: pH Urine UA 5.5 (4.5-8.0)
[2021-07-21 13:26] LABS: Bacteria Urine None Seen; Culture Indicated Urine Cult Not Indicated; RBC Urine 0-1/HPF (0-5/HPF); WBC Urine None Seen (0-5/HPF)
[2021-07-21 15:27] LABS: Creatinine Urine Random 83.6 mg/dL; Protein (Total) Urine Random 55 mg/dL (0-12); Protein Creatinine Ratio Urine 0.65 GRAM/24H
[2021-07-22 04:46] LABS: Complement C3 102 mg/dL (82-167)
== END ==
PROVIDERS: PCP Registered Nurse Diabetes Educator; Referring Provider Student in an Organized Health Care Education/Training Program; Visit Provider Student in an Organized Health Care Education/Training Program
DX: L95.0 Livedoid vasculitis (principal)
CPT/HCPCS: 36415; 80053; 81001; 82570; 84156; 85025; 85651; 86140; 86160

== ENCOUNTER → 2021-08-05 10:02 | Outpatient (CLI) | payer MEDICARE, OTHER, SELFPAY ==
[2021-08-05 11:19] LABS: HEMOLYSIS < 15 (0-50); Iron 81 ug/dL (37-170)
[2021-08-05 11:30] LABS: Percent Iron Saturation 29 % (15-50); Total Iron Binding Capacity 278 ug/dL (265-497); Transferrin 233 mg/dL (206-381)
== END ==
PROVIDERS: PCP Registered Nurse Diabetes Educator; Referring Provider Student in an Organized Health Care Education/Training Program; Visit Provider Student in an Organized Health Care Education/Training Program
DX: L95.9 Vasculitis limited to the skin, unspecified (principal)
CPT/HCPCS: 36415; 83540; 83550

== ENCOUNTER → 2021-08-14 10:39 | Outpatient (CLI) | payer MEDICARE, OTHER, SELFPAY ==
--- NOTE | 2021-08-14 10:40 | DI.RAD.S_ITS ---
PROCEDURE: XR DEXA AXIAL SKELETON INDICATIONS: reeval osteoporosis COMPARISON: None. FINDINGS: This blank DEXA report has been sent in error by the PACS system. The correct and complete report will be forthcoming in 1-2 days. Thank you for your patience and understanding. Dictated by: Rosey Ness MD, PhD on 08/14/2021 at 11:33 Approved by: Rosey Ness MD, PhD on 08/14/2021 at 11:33
== END ==
PROVIDERS: PCP Registered Nurse Diabetes Educator; Referring Provider Registered Nurse Diabetes Educator; Visit Provider Registered Nurse Diabetes Educator
DX: M81.0 Age-related osteoporosis without current pathological fracture (principal); Z78.0 Asymptomatic menopausal state
CPT/HCPCS: 77080

== ENCOUNTER → 2021-08-28 13:48 | Outpatient (CLI) | payer MEDICARE, OTHER, SELFPAY ==
[2021-08-28 15:32] LABS: Hemoglobin 9.6 g/dL (12.0-16.0); Red Cell Distribution Width 14.1 % (11.6-14.8)
[2021-08-28 15:48] LABS: Hematocrit 29.7 % (36-46); Mean Corpuscular HGB Conc 32.3 % (30-36); Mean Corpuscular Hemoglobin 28.6 PG (26-34); Mean Corpuscular Volume 88.4 fL (80-100); Platelet Count 339 X10^3/uL (150-400); Red Blood Cell Count 3.36 X10^6/uL (4.0-5.2); White Blood Cell Count 6.8 X10^3/uL (4.5-11.0)
[2021-08-28 15:53] LABS: Alanine Aminotransferase 11 IU/L (<35); Albumin 4.4 g/dL (3.5-5.0); Albumin Globulin Ratio 1.5 (1.0-2.8); Alkaline Phosphatase 36 U/L (38-126); Aspartate Aminotransferase 23 IU/L (14-36); BUN Creatinine Ratio 24.9 (6-22); Bilirubin Total 0.4 mg/dL (0.2-1.3); Blood Urea Nitrogen 50 mg/dL (7-17); Calcium 9.5 mg/dL (8.4-10.2); Carbon Dioxide 26 mmol/L (22-32); Chloride 105 mmol/L (98-107); Estimated Glomerular Filt Rate 24.5 mL/min (>60); Globulin 2.9 g/dL (1.7-4.1); Glucose 101 mg/dL (80-110); HEMOLYSIS < 15 (0-50); Phosphorous 4.7 mg/dL (2.8-4.1); Potassium 5.3 mmol/L (3.4-5.1); Sodium 137 mmol/L (137-145); Total Protein 7.3 g/dL (6.3-8.2)
[2021-08-28 16:13] LABS: Neutrophils Absolute Manual 4828 /uL (3000-5900); RBC Morphology Normal Morphology; Total Cells Counted 100
[2021-08-28 16:39] LABS: Appearance Urine UA CLEAR; Bilirubin Urine UA NEGATIVE (NEGATIVE); Color Urine UA YELLOW; Glucose Urine UA NEGATIVE (Negative); Ketones Urine UA NEGATIVE (NEGATIVE); Leukocyte Esterase Urine UA NEGATIVE (NEGATIVE); Nitrite Urine UA NEGATIVE (Negative); Occult Blood Urine UA TRACE-INTACT (Negative); Protein Urine UA 1+ (Negative); Urobilinogen Urine UA 0.2 E.U./dL (0.2)
[2021-08-28 16:41] LABS: Vitamin D 25 Hydroxy (D3) 58.3 ng/mL (30.0-100.0)
[2021-08-28 16:52] LABS: pH Urine UA 5.5 (4.5-8.0)
[2021-08-28 17:10] LABS: RBC Urine 0-1/HPF (0-5/HPF); Squamous Epithelial Cell Urine 0-1 /HPF (0-5/HPF); WBC Urine 0-1/HPF (0-5/HPF)
[2021-08-28 17:11] LABS: Bacteria Urine None Seen; Culture Indicated Urine Cult Not Indicated
[2021-08-28 17:19] LABS: Creatinine Urine Random 54.4 mg/dL; Protein (Total) Urine Random 59 mg/dL (0-12); Protein Creatinine Ratio Urine 1.08 GRAM/24H
[2021-08-28 17:20] LABS: Microalbumi Creatinin Ratio Ur 691.1 ug/mg CR (<30); Microalbumin Urine Random 37.6 mg/dL (0-1.6)
[2021-08-29 19:12] LABS: Calcium 9.5 mg/dL (8.7-10.3); Parathyroid Hormone, Intact 50 pg/mL (15-65)
[2021-09-01 12:35] LABS: Cytoplasmic C-ANCA <1:20 titer (Neg:<1:20); Perinuclear P-ANCA <1:20 titer (Neg:<1:20)
== END ==
PROVIDERS: PCP Registered Nurse Diabetes Educator; Referring Provider Internal Medicine Nephrology; Visit Provider Internal Medicine Nephrology
DX: N18.4 Chronic kidney disease, stage 4 (severe) (principal); N05.7 Unspecified nephritic syndrome with diffuse crescentic glomerulonephritis; M81.0 Age-related osteoporosis without current pathological fracture; Z92.241 Personal history of systemic steroid therapy
CPT/HCPCS: 36415; 80053; 81001; 82043; 82306; 82310; 82570; 83970; 84080; 84100; 84156; 85025; 86256

== ENCOUNTER → 2021-09-29 13:15 | Outpatient (CLI) | payer MEDICARE, OTHER, SELFPAY ==
--- NOTE | 2021-09-29 13:19 | DIET.CONS ---
Dietary Consultation Note Assessment: 71y F attending RD visit for help with diet to support autoimmune condition and CKD4. Pt has ANCA- associated vasculitis, in 2017 started AIP diet per suggestion from her PCP, was on methotrexate but had to stop due to renal fxn, now on different med mycophenolate (makes food smell really bad, -30# jul-november, now wt stable). autoimmune condition- has graves disease, in 2017 got bad pneumonia, extreme fatigue- after three chews, jaw was too tired, damages capillaries, eGFR fell from normal to 17 in 2019. Pt now c eGFR 20-30, Cr 1.5-2.1, potassium and phosphorus intermittently elevated. Pt stopped eating all convenience foods, followed diet strictly for a while, but found it too difficult and couldn't tell whether a food caused negative reaction or not. Even now has severely limited diet and fear of eating. Pt makes all own food (is tired of this), currently strict on sugar and moderate on salt, doesn't want to reintroduce bread or much dairy. 9 hours sleep many nights but sometimes up 2-3h in night and always takes hour nap after nap. Pt also with anemia of chronic disease. Gets medication infusions regularly, though RBC, HCT, Hgb still low. Pt felt the most energy with Hgb >11. Usual Day: B: Ensure Original Dark Chocolate and cup tea ([place]izen [place] Breakfast c packet stevia) L: two options: soup of potatoes, carrots, parsnips, onion, celery, box organic bone broth, can sodium free rotel diced tomatoes c chili, and zucchini and greens and sprinkle pumpkin seeds c an orange or apple and iced Rohan decaf tea c stevia other option: apple dipped in pb and sliced beef and iced Rohan decaf tea c stevia or [place] with stevia Sn: lemon, naval orange, or apple D: Pt prepares plain roast meat (chicken thigh, pork chop, steak, eggs as omelet), cooked veggie (green pea, broccoli, green beans, corn) and a salad c tomatoes, carrots, avocado, pumpkin seeds for herself and spouse but he gets rice or baked potato or bread as well cup tea before bed Pt wishes she could eat cinnamon rolls, cheese, lasagna, loves cheesy foods, enchiladas, chiles Ht: 5'2 Wt: 107# BMI: 19.6 (underweight for age) UBW: 137# Labs: eGFR 22-27x1y, Cr 1.8-2.1 x1y, K+ 3.4-5.3 x1y, Phos 4.7 H, ESR 34-104 H x1y, RBC 3.36 L, Hgb 9.6 L, Hct 29.[address] Impression: Pt presents with poor nutrition quality of life secondary to trying to manage her autoimmune condition and CKD4 through diet and conventional therapies. Pt with negative consequences of unintended weight loss, low BMI for age, and fear/shame around eating with renal and blood chemistry labs skewed. Pt has not eaten grains, beans, nuts, spices, or dairy (and many other foods) for five years and is afraid to reintroduce them secondary to a fear of making health worse. Goal of nutrition therapy is to educate pt on renal diet to preserve as much renal fxn as possible, as long as possible. This RD wants to honor pts efforts of AIP diet, however, AIP not meant to be long term care pharmacist diet, effort will be made to slowly reintroduce as many foods as possible to give pt better food quality of life. Nutrition Diagnosis: 1. altered nutrition related laboratory values r/t renal impairment, nutrition related knowledge deficit aeb labs listed above, pt with autoimmune vasculitis resulting in CKD4, pt consuming high potassium foods daily, pt with limited diet following AIP diet, pt does not know what to eat and feels hungry much of the time. 2. poor nutrition quality of life r/t restrictive eating aeb pt following strict AIP diet and renal diet concurrently with small list of foods to satisfy both, BMI 19.6 (underweight for age), pt reports being hungry and fears eating the wrong foods. Interventions: 1. This RD requests phosphorus labs be included c renal labs q3mo as phos elevated and pt drinking phos containing Ensure daily. Considering switch to ONS Nepro, but much more expensive, will hold off on substitution if phos labs regulate. Pt could talk to hand cloth examiner about phosphate binder as she is not eating many other foods high in phosphorus. 2. Educated pt on renal diet using Academy [employer] My Renal Plate worksheet. Using pts trending labs, educated on sodium, protein, potassium, phosphate in diet with lists of foods to eat more frequently and foods to limit based on pts current diet. 3. Shared Kidney Kitchen resource for recipes and recipe to xiong potassium out of potatoes (as pt uses them in soup). 4. Collaborated c pt on three foods to reintroduce this month: GF oats, 1oz low phosphorus cheese, berries. Pt very excited but nervous to try these foods. Discussed monitoring for reactions and freedom to take back out of diet if pt too nervous. EER: 55g PRO/d, 2g K+, phos, and sodium, one dairy daily plus 1oz low phos cheese Monitoring/Evaluations: f/u in 5w to continue nutrition therapy Electronically Signed by: Teresita Silverman 09/29/21 13:19 Clinical Dietitian [address] [address]
== END ==
PROVIDERS: PCP Registered Nurse Diabetes Educator; Referring Provider Registered Nurse Diabetes Educator; Visit Provider Registered Nurse Diabetes Educator
DX: I77.6 Arteritis, unspecified (principal); N18.4 Chronic kidney disease, stage 4 (severe); D63.1 Anemia in chronic kidney disease; Z71.3 Dietary counseling and surveillance; Z68.1 Body mass index [BMI] 19.9 or less, adult
CPT/HCPCS: 97802

== ENCOUNTER → 2021-10-08 14:43 | Outpatient (CLI) | payer MEDICARE, OTHER, SELFPAY ==
[2021-10-08 16:18] LABS: Add Manual Diff / Slide Review NO; Basophils Absolute Auto 100 /uL (0-100); Basophils Percent Auto 0.8 % (0-2); Eosinophils Absolute Auto 200 /uL (0-450); Eosinophils Percent Auto 2.6 % (2-4); Hematocrit 33.9 % (36-46); Hemoglobin 11.4 g/dL (12.0-16.0); Lymphocytes Absolute Auto 1700 /uL (1100-4500); Lymphocytes Percent Auto 26.2 % (25-40); Mean Corpuscular HGB Conc 33.7 % (30-36); Mean Corpuscular Hemoglobin 29.9 PG (26-34); Mean Corpuscular Volume 88.6 fL (80-100); Monocytes Absolute Auto 600 /uL (0-900); Monocytes Percent Auto 9.3 % (3-14); Neutrophils Absolute Auto 4000 /uL (1500-7000); Neutrophils Percent Auto 61.1 % (50-75); Platelet Count 344 X10^3/uL (150-400); Red Blood Cell Count 3.82 X10^6/uL (4.0-5.2); Red Cell Distribution Width 14.1 % (11.6-14.8); White Blood Cell Count 6.5 X10^3/uL (4.5-11.0)
[2021-10-08 16:38] LABS: Albumin 4.5 g/dL (3.5-5.0); BUN Creatinine Ratio 27.1 (6-22); Blood Urea Nitrogen 60 mg/dL (7-17); Calcium 9.6 mg/dL (8.4-10.2); Carbon Dioxide 26 mmol/L (22-32); Chloride 104 mmol/L (98-107); Estimated Glomerular Filt Rate 23 mL/min (>60); Glucose 100 mg/dL (80-110); HEMOLYSIS < 15 (0-50); Phosphorous 4.1 mg/dL (2.8-4.1); Potassium 4.6 mmol/L (3.4-5.1); Sodium 141 mmol/L (137-145)
[2021-10-08 17:00] LABS: Creatinine Urine Random 52.3 mg/dL; Protein (Total) Urine Random 14 mg/dL (0-12); Protein Creatinine Ratio Urine 0.26 GRAM/24H
[2021-10-08 17:45] LABS: Folate > 20.0 ng/mL (2.76-20.0)
[2021-10-09 15:20] LABS: Vitamin B12 636 pg/mL (239-931)
== END ==
PROVIDERS: PCP Registered Nurse Diabetes Educator; Referring Provider Internal Medicine; Visit Provider Internal Medicine
DX: N18.4 Chronic kidney disease, stage 4 (severe) (principal)
CPT/HCPCS: 36415; 80069; 82570; 82607; 82746; 84156; 85025

== ENCOUNTER → 2021-10-10 10:32 | Outpatient (CLI) | payer MEDICARE, OTHER, SELFPAY ==
[2021-10-10 12:08] LABS: Collection Time Urine 24 Hours; Creatinine 24 Hour Urine 840 mg/day (800-1800); Total Volume Urine 1500 mL
[2021-10-10 15:33] LABS: Calcium 24 Hour Urine 15 mg/day (100-300); Calcium Urine Random < 1.0 mg/dL; Collection Time Urine 24 Hours; Total Volume Urine 1500 mL
== END ==
PROVIDERS: PCP Registered Nurse Diabetes Educator; Referring Provider Internal Medicine; Visit Provider Internal Medicine
DX: M81.0 Age-related osteoporosis without current pathological fracture (principal)
CPT/HCPCS: 82340; 82570

== ENCOUNTER → 2021-11-03 15:52 | Outpatient (CLI) | payer MEDICARE, OTHER, SELFPAY ==
--- NOTE | 2021-11-03 16:38 | DIET.PN1 ---
Dietary Progress Note 71y F attending RD visit via telehealth for CKD3. Pt in home office, RD in hospital office, audio and video chat which pt agrees to. Pt with reduced desire to eat, holding steady at 107#. Pt was excited at first about expanding her diet, but now mix between apathy, fear, and excitement. She is afraid because her vasculitis comes on suddenly. Pt followed AIP diet (autoimmune protocol) for several years, a diet that is not meant to be followed so long. Pt and RD working on supporting kidney health while reintroducing foods to support pts weight status, fatigue. Pt has increased intake cheese and oatmeal which she is happy about. Pt interested in adding back more food variety. Discussed adding non-GMO corn tortillas (6) in street tacos or a low sodium enchiladas (a favorite food she misses most). Pt will make the sauce from scratch to ensure it is low sodium. BP has been really erratic 99/67, 175/96, 130-140 sometimes drops really quickly. Pt on medication adjustment protocol via her medical team. RD reminds pt stevia can cause lowering of both systolic and diastolic BPs and to take this into account as she uses the sweetener multiple times per day. Pts labs showing high BUN. Discussed adequate hydration to support renal health and BP. Pt able to eat watery foods and SF drinks in addition to plain water. Discussed option of meal delivery service to support pts PO intake while she is feeling fatigued and not excited about food. Pts son uses [employer]. RD shared there are many good services with dietary preferences honored, both meal kits and ready made items. Pt will talk to son about his experience with [employer] and look into [employer] which is an organic option. Pt next set of renal labs 11/29/21, RD f/u scheduled for two weeks after to see how labs are responding to dietary interventions and to continue supportive care. Electronically Signed by: Teresita Silverman 11/03/21 16:38 Clinical Dietitian [address] [place] [address]
== END ==
PROVIDERS: PCP Registered Nurse Diabetes Educator; Referring Provider Registered Nurse Diabetes Educator; Visit Provider Registered Nurse Diabetes Educator
DX: N18.30 Chronic kidney disease, stage 3 unspecified (principal); Z71.3 Dietary counseling and surveillance
CPT/HCPCS: 97803

== ENCOUNTER → 2021-11-28 09:29 | Outpatient (CLI) | payer MEDICARE, OTHER, SELFPAY ==
[2021-11-28 10:35] LABS: Add Manual Diff / Slide Review NO; Basophils Absolute Auto 0 /uL (0-100); Basophils Percent Auto 0.5 % (0-2); Eosinophils Absolute Auto 300 /uL (0-450); Eosinophils Percent Auto 2.8 % (2-4); Hematocrit 33.5 % (36-46); Hemoglobin 11.2 g/dL (12.0-16.0); Lymphocytes Absolute Auto 1500 /uL (1100-4500); Lymphocytes Percent Auto 15.6 % (25-40); Mean Corpuscular HGB Conc 33.3 % (30-36); Mean Corpuscular Hemoglobin 29.5 PG (26-34); Mean Corpuscular Volume 88.5 fL (80-100); Monocytes Absolute Auto 1000 /uL (0-900); Monocytes Percent Auto 10.5 % (3-14); Neutrophils Absolute Auto 7000 /uL (1500-7000); Neutrophils Percent Auto 70.6 % (50-75); Platelet Count 417 X10^3/uL (150-400); Red Blood Cell Count 3.78 X10^6/uL (4.0-5.2); Red Cell Distribution Width 14.1 % (11.6-14.8); White Blood Cell Count 9.9 X10^3/uL (4.5-11.0)
[2021-11-28 10:52] LABS: Appearance Urine UA CLEAR; Bilirubin Urine UA NEGATIVE (NEGATIVE); Color Urine UA YELLOW; Glucose Urine UA NEGATIVE (Negative); Ketones Urine UA NEGATIVE (NEGATIVE); Leukocyte Esterase Urine UA NEGATIVE (NEGATIVE); Nitrite Urine UA NEGATIVE (Negative); Occult Blood Urine UA 1+ (Negative); Protein Urine UA 1+ (Negative); Specific Gravity Urine UA <=1.005 (1.000-1.035); Urobilinogen Urine UA 0.2 E.U./dL (0.2)
[2021-11-28 10:52] LABS: Alanine Aminotransferase 11 IU/L (<35); Albumin 4.1 g/dL (3.5-5.0); Albumin Globulin Ratio 1.6 (1.0-2.8); Alkaline Phosphatase 68 U/L (38-126); Aspartate Aminotransferase 19 IU/L (14-36); BUN Creatinine Ratio 16.7 (6-22); Bilirubin Total 0.4 mg/dL (0.2-1.3); Blood Urea Nitrogen 30 mg/dL (7-17); Calcium 8.4 mg/dL (8.4-10.2); Carbon Dioxide 26 mmol/L (22-32); Chloride 109 mmol/L (98-107); Estimated Glomerular Filt Rate 30 mL/min (>60); Globulin 2.5 g/dL (1.7-4.1); Glucose 95 mg/dL (80-110); HEMOLYSIS < 15 (0-50); Magnesium 2.6 mg/dL (1.6-2.3); Phosphorous 3.3 mg/dL (2.8-4.1); Sodium 140 mmol/L (137-145); Total Protein 6.6 g/dL (6.3-8.2)
[2021-11-28 10:53] LABS: Potassium 5.4 mmol/L (3.4-5.1)
[2021-11-28 10:53] LABS: pH Urine UA 5.5 (4.5-8.0)
[2021-11-28 10:57] LABS: RBC Urine 1-5/HPF (0-5/HPF); WBC Urine None Seen (0-5/HPF)
[2021-11-28 10:58] LABS: Bacteria Urine None Seen; Culture Indicated Urine Cult Not Indicated
[2021-11-28 11:35] LABS: Creatinine Urine Random 106.4 mg/dL
[2021-11-28 11:55] LABS: Folate > 20.0 ng/mL (2.76-20.0)
[2021-12-02 13:09] LABS: Alpha-1 Globulin, Ur 1.1 % (.); Beta Globulin, Ur 4.5 % (.); Cytoplasmic C-ANCA <1:20 titer (Neg:<1:20); Gamma Globulin, Ur 0.7 % (.); M-Spike % Not Observed % (Not Observed); Perinuclear P-ANCA <1:20 titer (Neg:<1:20); Urine Total Protein 42.4 mg/dL (Not Estab.)
== END ==
PROVIDERS: PCP Registered Nurse Diabetes Educator; Referring Provider Internal Medicine Nephrology; Visit Provider Internal Medicine Nephrology
DX: N18.4 Chronic kidney disease, stage 4 (severe) (principal); M81.0 Age-related osteoporosis without current pathological fracture
CPT/HCPCS: 36415; 80053; 81001; 82570; 82746; 83735; 84100; 84156; 84166; 85025; 86256

== ENCOUNTER → 2021-12-15 12:24 | Outpatient (CLI) | payer MEDICARE, OTHER, SELFPAY ==
--- NOTE | 2021-12-15 12:35 | DIET.OUTPTC ---
Dietary Outpatient Consultation Note Consultation Date: 12/15/2021 Pt agrees to telehealth visit, attending visit from home, RD from hospital office using [employer] video conferencing. 71y F attending telehealth f/u c RD for help with CKD3 and vasculitis. Pt weighed about a month ago, up to 110# up from 107# during our first consult. Pt still with taste changes, does taste sugar, however avoids sugar because it is inflammatory. Ate enchiladas (used to be a favorite food) but not as enjoyable because of taste changes. This morning BP 126/76. Hgb 11.2 pt having some fatigue, sometimes two naps in a day. Interventions: 1. Reviewed s/sx anemia including fatigue. Pt on EPO to help with anemia. Reviewed high iron foods. Pt likes clams, oysters, mussels. Will consume more when eating out as she does not like the fuss of preparing them at home. 2. Discussed F.A.S.S. strategy for taste changes. Adding fat, acid, sugar, salt to meals to increase taste perception. 3. Discussed adding GF (seed based) crackers to diet as pt misses eating crackers but is worried still about adding gluten and wheat back to diet. Monitoring/Evaluation: pt will call prn for visits, likely r/deepthi for late January before she takes trip to [place]. Electronically Signed by: Teresita Silverman 12/15/21 12:35 Clinical Dietitian [address] [address]
== END ==
PROVIDERS: PCP Registered Nurse Diabetes Educator; Referring Provider Registered Nurse Diabetes Educator; Visit Provider Registered Nurse Diabetes Educator
DX: N18.30 Chronic kidney disease, stage 3 unspecified (principal); I77.6 Arteritis, unspecified; Z71.3 Dietary counseling and surveillance
CPT/HCPCS: 97803

== ENCOUNTER → 2022-09-30 13:25 | Outpatient (CLI) | payer MEDICARE, OTHER, SELFPAY ==
--- NOTE | 2022-09-30 13:27 | DI.RAD.S_ITS ---
PROCEDURE: XR SHOULDER LT MIN 2V INDICATIONS: eval L shoulder and neck pain TECHNIQUE: 3 views of the shoulder were acquired. COMPARISON: None. FINDINGS: Bones: No fractures or dislocations. No suspicious bony lesions. Visualized ribs appear intact. Mild AC joint hypertrophy. Soft tissues: No suspicious soft tissue calcifications. IMPRESSION: No acute osseous abnormality. If symptoms persist, follow-up radiographs and/or CT or MRI may be helpful for further evaluation. Dictated by: Chaparro Vidal M.D. on 09/30/2022 at 15:40 Approved by: Chaparro Vidal M.D. on 09/30/2022 at 15:41
--- NOTE | 2022-09-30 13:27 | DI.RAD.S_ITS ---
PROCEDURE: XR CERVICAL SPINE 2V OR 3V INDICATIONS: eval L shoulder and neck pain TECHNIQUE: 3 view(s) of the cervical spine were acquired. COMPARISON: None. FINDINGS: Bones: No fractures or dislocations to the C7-T1 level. Straightening of the normal cervical lordosis, a finding which can be seen in the setting of muscle strain and/or spasm. The lateral masses of C1 appear intact on the odontoid view. Severe multilevel degenerative changes with disc height loss, endplate spurring, and facet arthropathy. Soft tissues: No prevertebral soft tissue swelling. IMPRESSION: Severe multilevel degenerative changes of the cervical spine. Dictated by: Chaparro Vidal M.D. on 09/30/2022 at 15:36 Approved by: Chaparro Vidal M.D. on 09/30/2022 at 15:40
== END ==
PROVIDERS: PCP Registered Nurse Diabetes Educator; Referring Provider Registered Nurse Diabetes Educator; Visit Provider Registered Nurse Diabetes Educator
DX: M47.22 Other spondylosis with radiculopathy, cervical region (principal); M54.2 Cervicalgia; M25.512 Pain in left shoulder
CPT/HCPCS: 72040; 73030

== ENCOUNTER → 2022-10-21 14:06 | Outpatient (CLI) | payer MEDICARE, OTHER, SELFPAY ==
[2022-10-21 15:04] LABS: Add Manual Diff / Slide Review NO; Basophils Absolute Auto 0 /uL (0-100); Basophils Percent Auto 0.7 % (0-2); Eosinophils Absolute Auto 400 /uL (0-450); Eosinophils Percent Auto 5.2 % (2-4); Hematocrit 33.4 % (36-46); Hemoglobin 11.5 g/dL (12.0-16.0); Lymphocytes Absolute Auto 1800 /uL (1100-4500); Lymphocytes Percent Auto 25.5 % (25-40); Mean Corpuscular HGB Conc 34.5 % (30-36); Mean Corpuscular Hemoglobin 31.7 PG (26-34); Mean Corpuscular Volume 91.8 fL (80-100); Monocytes Absolute Auto 600 /uL (0-900); Monocytes Percent Auto 8.8 % (3-14); Neutrophils Absolute Auto 4300 /uL (1500-7000); Neutrophils Percent Auto 59.8 % (50-75); Platelet Count 351 X10^3/uL (150-400); Red Blood Cell Count 3.64 X10^6/uL (4.0-5.2); Red Cell Distribution Width 13.6 % (11.6-14.8); White Blood Cell Count 7.2 X10^3/uL (4.5-11.0)
[2022-10-21 15:23] LABS: Alanine Aminotransferase 13 IU/L (<35); Albumin Globulin Ratio 1.6 (1.0-2.8); Alkaline Phosphatase 48 U/L (38-126); Aspartate Aminotransferase 20 IU/L (14-36); BUN Creatinine Ratio 20.7 (6-22); Bilirubin Total 0.4 mg/dL (0.2-1.3); Blood Urea Nitrogen 39 mg/dL (7-17); C-Reactive Protein Quant 0.6 mg/dL (<1.0); Carbon Dioxide 21 mmol/L (22-32); Chloride 110 mmol/L (98-107); Estimated Glomerular Filt Rate 28 mL/min (>60); Globulin 2.5 g/dL (1.7-4.1); Glucose 107 mg/dL (80-110); HEMOLYSIS < 15 (0-50); Sodium 140 mmol/L (137-145); Total Protein 6.5 g/dL (6.3-8.2)
[2022-10-21 15:27] LABS: Erythrocyte Sedimentation Rate 46 MM/HR (0-20)
== END ==
PROVIDERS: PCP Registered Nurse Diabetes Educator; Referring Provider Student in an Organized Health Care Education/Training Program; Visit Provider Student in an Organized Health Care Education/Training Program
DX: Z79.899 Other long term (current) drug therapy (principal)
CPT/HCPCS: 36415; 80053; 85025; 85651; 86140

== ENCOUNTER → 2022-11-05 14:12 | Outpatient (CLI) | payer MEDICARE, OTHER, SELFPAY ==
[2022-11-05 15:26] LABS: BUN Creatinine Ratio 18.6 (6-22); Blood Urea Nitrogen 36 mg/dL (7-17); Calcium 8.9 mg/dL (8.4-10.2); Carbon Dioxide 21 mmol/L (22-32); Chloride 107 mmol/L (98-107); Estimated Glomerular Filt Rate 27 mL/min (>60); Glucose 74 mg/dL (80-110); HEMOLYSIS < 15 (0-50); Sodium 139 mmol/L (137-145)
[2022-11-05 15:58] LABS: Vitamin D 25 Hydroxy (D3) 51.6 ng/mL (30.0-100.0)
[2022-11-06 18:26] LABS: Calcium 7.2 mg/dL (8.7-10.3); Parathyroid Hormone, Intact 63 pg/mL (15-65)
== END ==
PROVIDERS: PCP Registered Nurse Diabetes Educator; Referring Provider Internal Medicine; Visit Provider Internal Medicine
DX: M81.0 Age-related osteoporosis without current pathological fracture (principal)
CPT/HCPCS: 36415; 80048; 82306; 82310; 83970

== ENCOUNTER → 2022-11-06 12:38 | Outpatient (CLI) | payer MEDICARE, OTHER, SELFPAY ==
--- NOTE | 2022-11-06 | DI.RAD.S_ITS ---
Bone Density Report Name: DIPTI BIRCH Age: 72 Sex: Female Ethnicity: White Date of : 1950 Indication: postmenopausal osteoporosis; monitoring treatment; Referring Provider: LIONEL GRAHAM Study: Bone densitometry was performed. Exam Date: November 06, 2022 Accession number: [id number] Bone Density: Region BMD T-score Z-score Classification AP Spine(L1-L4) 1.006 -0.4 1.8 Normal Femoral Neck (Left) 0.464 -3.5 -1.6 Osteoporosis Total Hip (Left) 0.666 -2.3 -0.7 Osteopenia Femoral Neck (Right) 0.495 -3.2 -1.3 Osteoporosis Total Hip (Right) 0.629 -2.6 -1.0 Osteoporosis Total Hip Mean 0.648 -2.5 -0.9 Osteopenia World Health Organization criteria for BMD impression classify patients as: Normal (T-score at or above -1.0), Osteopenia (T-score between -1.0 and -2.5), or Osteoporosis (T-score at or below -2.5). 10-year Fracture Risk: FRAX not reported because: Some T-score for Spine Total or Hip Total or Femoral Neck at or below -2.5 Treated for osteoporosis Previous Exams: -- Region Exam Age BMD T-score BMD Change BMD Change Date g/cm2 vs Baseline vs Previous -- AP Spine (L1-L4) 11/06/2022 72 1.006 -0.4 0.042 (4.4%)# 0.042 (4.4%)# 08/14/2021 71 0.964 -0.8 Total Hip(Left) 11/06/2022 72 0.666 -2.3 0.073 (12.3%)# 0.073 (12.3%)# 08/14/2021 71 0.593 -2.9 Total Hip(Right) 11/06/2022 72 0.629 -2.6 0.062 (10.9%)# 0.062 (10.9%)# 08/14/2021 71 0.567 -3.1 -- *Denotes significance at 95% confidence level, LSC for AP Spine = 0.022 g/cm2, LSC for Total Hip = 0.027 g/cm2 # Denotes dissimilar scan types or analysis methods Impression: The patient has osteoporosis, based on the Left Femoral Neck T-score. No significant bone loss was observed. Discussion: PATIENT UNDER TREATMENT WITH NO SIGNIFICANT BMD LOSS SINCE LAST EXAM. In an untreated patient, BMD typically declines with age. A lack of decline or gain is usually a sign that treatment is efficacious and fracture risk is reduced. It is important to ask patients whether they are taking their medications and to encourage continued and appropriate compliance with their osteoporosis therapies to reduce fracture risk. It is also important to review their risk factors and encourage appropriate calcium and vitamin D intakes, exercise, fall prevention and other lifestyle measures. Follow-Up: Consider a repeat BMD and Vertebral Fracture Assessment (VFA) exam in 2 years or sooner if medically necessary, to reassess this patient's status. Reported by: JOE MEDINA M.D. on 11/06/2022 1:04:00 PM.
== END ==
PROVIDERS: PCP Registered Nurse Diabetes Educator; Referring Provider Internal Medicine; Visit Provider Internal Medicine
DX: M81.0 Age-related osteoporosis without current pathological fracture (principal)
CPT/HCPCS: 77080

== ENCOUNTER → 2023-04-19 12:52 | Outpatient (CLI) | payer MEDICARE, OTHER, SELFPAY ==
[2023-04-19 13:30] LABS: Add Manual Diff / Slide Review NO; Basophils Absolute Auto 100 /uL (0-100); Basophils Percent Auto 0.7 % (0-2); Eosinophils Absolute Auto 300 /uL (0-450); Hematocrit 35.4 % (36-46); Hemoglobin 11.9 g/dL (12.0-16.0); Lymphocytes Absolute Auto 500 /uL (1100-4500); Lymphocytes Percent Auto 6.6 % (25-40); Mean Corpuscular HGB Conc 33.5 % (30-36); Mean Corpuscular Hemoglobin 30.9 PG (26-34); Mean Corpuscular Volume 92.1 fL (80-100); Monocytes Absolute Auto 1400 /uL (0-900); Monocytes Percent Auto 19.4 % (3-14); Neutrophils Absolute Auto 5100 /uL (1500-7000); Neutrophils Percent Auto 69.3 % (50-75); Platelet Count 312 X10^3/uL (150-400); Red Blood Cell Count 3.84 X10^6/uL (4.0-5.2); Red Cell Distribution Width 13.3 % (11.6-14.8); White Blood Cell Count 7.4 X10^3/uL (4.5-11.0)
[2023-04-19 13:59] LABS: Erythrocyte Sedimentation Rate 35 MM/HR (0-20)
[2023-04-19 14:54] LABS: Alanine Aminotransferase 13 IU/L (<35); Albumin 4.1 g/dL (3.5-5.0); Albumin Globulin Ratio 1.8 (1.0-2.8); Alkaline Phosphatase 52 U/L (38-126); Aspartate Aminotransferase 21 IU/L (14-36); BUN Creatinine Ratio 16.2 (6-22); Bilirubin Total 0.6 mg/dL (0.2-1.3); Blood Urea Nitrogen 31 mg/dL (7-17); Calcium 9.8 mg/dL (8.4-10.2); Carbon Dioxide 21 mmol/L (22-32); Chloride 107 mmol/L (98-107); Estimated Glomerular Filt Rate 28 mL/min (>60); Globulin 2.3 g/dL (1.7-4.1); Glucose 88 mg/dL (80-110); HEMOLYSIS < 15 (0-50); Potassium 5.2 mmol/L (3.4-5.1); Sodium 136 mmol/L (137-145); Total Protein 6.4 g/dL (6.3-8.2)
== END ==
PROVIDERS: PCP Registered Nurse Diabetes Educator; Referring Provider Student in an Organized Health Care Education/Training Program; Visit Provider Student in an Organized Health Care Education/Training Program
DX: Z79.899 Other long term (current) drug therapy (principal)
CPT/HCPCS: 36415; 80053; 85025; 85651; 86140

== ENCOUNTER → 2023-05-31 09:52 | Outpatient (CLI) | payer MEDICARE, OTHER, SELFPAY ==
--- NOTE | 2023-05-31 09:54 | DI.RAD.S_ITS ---
P or ROCEDURE: XR CHEST 2V INDICATIONS: Cough x 5 weeks TECHNIQUE: 2 views of the chest were acquired. COMPARISON: [facility], , CHEST 2 VIEW, 10/09/2016, 11:16. FINDINGS: Surgical changes and devices: None. Lungs and pleura: Right upper lung small consolidation. No pleural effusions or pneumothorax. Mediastinum: Mediastinal contours are normal. Heart size is normal. Bones and chest wall: No suspicious bony abnormalities. Soft tissues appear unremarkable. IMPRESSION: Right upper lung small consolidation which may represent pneumonia. Recommend short interval radiographic follow-up after treatment to rule out an underlying pulmonary nodule/mass. Dictated by: Rupert Atkins M.D. on 05/31/2023 at 10:26 Approved by: Rupert Atkins M.D. on 05/31/2023 at 10:32
== END ==
PROVIDERS: PCP Registered Nurse Diabetes Educator; Referring Provider Physician Assistant; Visit Provider Physician Assistant
DX: R05.3 Chronic cough (principal)
CPT/HCPCS: 71046

== ENCOUNTER → 2023-06-08 09:52 | Outpatient (CLI) | payer MEDICARE, SELFPAY ==
[2023-06-08 10:51] LABS: Add Manual Diff / Slide Review NO; Basophils Absolute Auto 0 /uL (0-100); Basophils Percent Auto 0.3 % (0-2); Eosinophils Absolute Auto 100 /uL (0-450); Eosinophils Percent Auto 1.4 % (2-4); Hematocrit 32.4 % (36-46); Hemoglobin 11.2 g/dL (12.0-16.0); Lymphocytes Absolute Auto 800 /uL (1100-4500); Lymphocytes Percent Auto 9.6 % (25-40); Mean Corpuscular HGB Conc 34.4 % (30-36); Mean Corpuscular Hemoglobin 29.9 PG (26-34); Monocytes Absolute Auto 800 /uL (0-900); Monocytes Percent Auto 9.1 % (3-14); Neutrophils Absolute Auto 6700 /uL (1500-7000); Neutrophils Percent Auto 79.6 % (50-75); Platelet Count 496 X10^3/uL (150-400); Red Blood Cell Count 3.73 X10^6/uL (4.0-5.2); Red Cell Distribution Width 13.2 % (11.6-14.8); White Blood Cell Count 8.4 X10^3/uL (4.5-11.0)
[2023-06-08 11:11] LABS: Alanine Aminotransferase 10 IU/L (<35); Albumin 3.9 g/dL (3.5-5.0); Albumin Globulin Ratio 1.1 (1.0-2.8); Alkaline Phosphatase 56 U/L (38-126); Aspartate Aminotransferase 22 IU/L (14-36); BUN Creatinine Ratio 11.1 (6-22); Bilirubin Total 0.6 mg/dL (0.2-1.3); Blood Urea Nitrogen 27 mg/dL (7-17); C-Reactive Protein Quant 5.8 mg/dL (<1.0); Calcium 9.2 mg/dL (8.4-10.2); Carbon Dioxide 17 mmol/L (22-32); Chloride 105 mmol/L (98-107); Estimated Glomerular Filt Rate 21 mL/min (>60); Globulin 3.4 g/dL (1.7-4.1); Glucose 112 mg/dL (80-110); HEMOLYSIS < 15 (0-50); Sodium 134 mmol/L (137-145); Total Protein 7.3 g/dL (6.3-8.2)
[2023-06-08 11:12] LABS: Potassium 5.4 mmol/L (3.4-5.1)
[2023-06-08 11:35] LABS: Erythrocyte Sedimentation Rate > 140 MM/HR (0-20)
== END ==
PROVIDERS: PCP Registered Nurse Diabetes Educator; Referring Provider Student in an Organized Health Care Education/Training Program; Visit Provider Student in an Organized Health Care Education/Training Program
DX: Z79.899 Other long term (current) drug therapy (principal)
CPT/HCPCS: 36415; 80053; 85025; 85651; 86140

== ENCOUNTER → 2023-06-08 10:28 | Outpatient (CLI) | payer MEDICARE, SELFPAY ==
--- NOTE | 2023-06-08 10:48 | DI.RAD.S_ITS ---
PROCEDURE: XR CHEST 2V INDICATIONS: PNEUMONIA FOLLOW-UP TECHNIQUE: 2 views of the chest were acquired. COMPARISON: [facility], , XR CHEST 2V, 05/31/2023, 10:06. [facility], , CHEST 2 VIEW, 10/09/2016, 11:16. FINDINGS: Surgical changes and devices: None. Lungs and pleura: Slightly increased right upper lung zone consolidation. Mediastinum: Mediastinal contours are normal. Heart size is normal. Bones and chest wall: No suspicious bony abnormalities. Soft tissues appear unremarkable. IMPRESSION: Slightly increased right upper lung zone consolidation, probably representing worsening infection. Underlying mass is not entirely excluded so follow-up in 1-2 months with chest x-ray is recommended to ensure resolution. Dictated by: Shan Anderson M.D. on 06/08/2023 at 10:56 Approved by: Shan Anderson M.D. on 06/08/2023 at 10:57
== END ==
PROVIDERS: PCP Registered Nurse Diabetes Educator; Referring Provider Registered Nurse Diabetes Educator; Visit Provider Registered Nurse Diabetes Educator
DX: J18.9 Pneumonia, unspecified organism (principal); Z79.899 Other long term (current) drug therapy
CPT/HCPCS: 36415; 71046; 80053; 85025; 85651; 86140

== ENCOUNTER 2023-06-08 13:34 | Emergency (ER) | payer MEDICARE, OTHER, SELFPAY ==
[2023-06-08] VITALS (13 sets, daily range): BP systolic 130–157; BP diastolic 59–75; PULSE 71–86; RESP 22; TEMP 37; O2SAT 93–97; BMI 24.7
--- NOTE | 2023-06-08 14:00 | ED.GENADULT ---
HPI - General Adult General Chief complaint: Upper Respiratory Symptoms Stated complaint: worsening pne/renal function/sed rate Time Seen by Provider: 06/08/23 13:47 Source: patient Mode of arrival: Ambulatory History of Present Illness HPI narrative: 72-year-old female. Has a history of ANCA vasculitis. Is followed by rheumatology and nephrology at [facility]. Several weeks ago was diagnosed with COVID. Has since got over this and has tested negative. She went to the walk-in clinic several days ago. Had a chest x-ray. Was diagnosed with pneumonia. Was on azithromycin and amoxicillin. Has since completed all of his antibiotics. Has diarrhea. She went to her primary doctor earlier today because she states she is just felt very fatigued and run down. Had repeat labs. Showed a increase in her creatinine and decrease in her GFR. X-ray shows worsening of the lung consolidation. She was sent to the emergency department for concerns of a vasculitis flare. Related Data Home Medications Medication Instructions Recorded Confirmed acetaminophen 325 mg capsule 650 mg PO Q6H PRN 09/19/20 06/08/23 folic acid 1 mg tablet 1 mg PO DAILY 09/19/20 06/08/23 retuximab infusion miscellaneous 08/05/21 06/08/23 lisinopril 40 mg tablet 20 mg PO DAILY 09/30/22 06/08/23 nifedipine 30 mg tablet,extended 60 mg PO DAILY 09/30/22 06/08/23 release sodium bicarbonate 325 mg tablet 325 mg PO DAILY 05/31/23 06/08/23 Previous Rx's Medication Instructions Recorded triamcinolone acetonide 0.1 % 0.1 % topical QDAYP PRN psoriasis 04/29/20 topical ointment #80 grams denosumab 60 mg/mL subcutaneous 60 mg SUBCUT [id number] #1 mL 11/10/21 syringe (Prolia) desonide 0.05 % topical cream 1 applic topical QD-BID PRN skin 01/18/23 irritation #60 grams amoxicillin 875 mg-potassium 1 tab PO BID 10 days #20 tabs 05/31/23 clavulanate 125 mg tablet benzonatate 100 mg capsule 100 mg PO TID PRN cough #20 caps 05/31/23 benzonatate 100 mg capsule 100 mg PO BID-TID PRN cough #20 06/08/23 caps doxycycline monohydrate 100 mg 100 mg PO BID 7 days #14 tabs 06/08/23 tablet Allergies Allergy/AdvReac Type Severity Reaction Status Date / Time morphine [MORPHINE] AdvReac Intermediate HIVES Verified 06/08/23 13:46 Review of Systems Constitutional Constitutional: Reports system reviewed and no additional complaints, except as documented Cardiovascular Cardiovascular: Reports system reviewed and no additional complaints, except as documented Respiratory Respiratory: Reports system reviewed and no additional complaints, except as documented Gastrointestinal Gastrointestinal: Reports system reviewed and no additional complaints, except as documented Integumentary/Breasts Skin/Breast: Reports system reviewed and no additional complaints, except as documented Neurologic Neurologic: Reports system reviewed and no additional complaints, except as documented Hematologic/Lymphatic On Anticoagulants: No Patient History Medical History Degenerative joint disease of cervical spine Chronic low back pain without sciatica CKD (chronic kidney disease) stage 4, GFR 15-29 ml/min Adjustment disorder with depressed mood CKD (chronic kidney disease) Hypertension Compromised renal function Osteoporosis ANCA-associated vasculitis (~2016) Rubella Mumps Measles Chicken pox Hyperthyroidism (~2007) Psoriasis Raynaud disease Osteopenia Surgical History Anesthesia History of section 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/1967) Family History Brother Type 1 diabetes mellitus without complication Brother Alcoholism /alcohol abuse Father Essential hypertension Mother Essential hypertension Stroke Gout Grandfather History of heart disease Grandmother Cancer Grandfather Circulatory disease Grandmother History of heart disease Social History Smoking Status: Never smoker Smoking Status: Never smoker tobacco type: cigarettes alcohol intake frequency: holidays/special occasions only Alcohol type: beer Substance Use Type: does not use Exam Initial Vital Signs Initial Vital Signs: Vital Signs Temperature 98.6 F 06/08/23 13:42 Pulse Rate 85 06/08/23 13:42 Respiratory Rate 22 06/08/23 13:42 Blood Pressure 130/59 L 06/08/23 13:42 Pulse Oximetry 97 06/08/23 13:42 Oxygen Delivery Method Room Air 06/08/23 13:42 HENMT Head: normal to inspection and normocephalic Resp Effort & Inspection: normal respiratory effort Auscultation: clear to auscultation bilaterally Cardio Rate: regular rate Rhythm: regular rhythm GI Inspection: normal to inspection and non-distended Skin General: no rashes or lesions noted Neuro General: patient alert, patient awake and moves all extremities Extrem General: capillary refill normal Course Orders Ordered: ED Orders 06/08/23 14:21 CT chest wo con Stat 06/08/23 14:35 Respiratory Panel (Film Array) Stat 06/08/23 17:33 Urine Microscopic Stat 06/08/23 18:45 Sputum Culture Stat Discontinued Medications Sodium Chloride (Normal Saline 0.9%) 1,000 mls @ 1,000 mls/hr IV BOLUS ONE Stop: 06/08/23 15:04 Last Infusion: 06/08/23 15:58 Dose: Infused Documented By: Admin: 06/08/23 14:36 Dose: 1,000 mls/hr Documented By: LÁZARO Vital Signs Vital signs: Vital Signs - 8 hr 06/08/23 13:42 06/08/23 14:33 06/08/23 14:34 Temperature 98.6 F Pulse Rate 85 78 Respiratory Rate 22 Blood Pressure 130/59 L 139/66 Pulse Oximetry 97 97 Oxygen Delivery Method Room Air 06/08/23 14:34 06/08/23 15:00 06/08/23 15:00 Temperature Pulse Rate 80 76 Respiratory Rate Blood Pressure 140/63 Pulse Oximetry 96 93 Oxygen Delivery Method 06/08/23 15:30 06/08/23 15:30 06/08/23 16:00 Temperature Pulse Rate 78 Respiratory Rate Blood Pressure 152/68 H 144/69 H Pulse Oximetry 96 Oxygen Delivery Method 06/08/23 16:00 06/08/23 16:30 06/08/23 16:30 Temperature Pulse Rate 77 74 Respiratory Rate Blood Pressure 143/65 H Pulse Oximetry 93 94 Oxygen Delivery Method 06/08/23 17:00 06/08/23 17:00 06/08/23 17:29 Temperature Pulse Rate 71 86 Respiratory Rate Blood Pressure 151/70 H Pulse Oximetry 93 96 Oxygen Delivery Method 06/08/23 17:29 06/08/23 17:30 06/08/23 17:30 Temperature Pulse Rate 81 Respiratory Rate Blood Pressure 157/75 H 146/71 H Pulse Oximetry 96 Oxygen Delivery Method 06/08/23 18:00 12/19/23 18:00 Temperature Pulse Rate 79 Respiratory Rate Blood Pressure 152/72 H Pulse Oximetry 93 Oxygen Delivery Method Medical Decision Making Lab Data Lab results reviewed: Yes I reviewed the patient's lab results. Labs: Lab Results 06/08/23 Range/Units 14:35 Chlamy pneumoniae PCR Not detected (Not Detect) Adenovirus (PCR) Not detected (Not Detect) B.parapertussis DNA PCR Not detected (Not Detecte) Coronavirus OC43 (PCR) Not detected (Not Detect) Coronavirus HKU1 (PCR) Not detected (Not Detect) Coronavirus 229E (PCR) Not detected (Not Detect) SARS-CoV-2 (PCR) Not detected (Not Detecte) Coronavirus NL63 (PCR) Not detected (Not Detect) Human Metapneumovir PCR Not detected (Not Detect) Influenza Type A (PCR) Not detected (Not Detect) Influenza Type B (PCR) Not detected (Not Detect) M. pneumoniae (PCR) Not detected (Not Detect) Parainfluenza 1 (PCR) Not detected (Not Detect) Parainfluenza 2 (PCR) Not detected (Not Detect) Parainfluenza 3 (PCR) Not detected (Not Detect) Parainfluenza 4 (PCR) Not detected (Not Detect) RSV (PCR) Not detected (Not Detect) Entero/Rhino (PCR) Not detected (Not Detect) Urine Dip Bedside Urine Glucose Negative Bedside Urine Bilirubin - Negative Bedside Urine Ketone - Negative Urine Specific [place] 1.010 Bedside Urine Occult Blood + Bedside Urine pH 6.0 Bedside Urine Protein +/- 15 Bedside Urine Nitrite - Negative Bedside Urine Leukocytes - Negative Esterase Point of care testing: Urine Dip Bedside Urine Glucose Negative Bedside Urine Bilirubin - Negative Bedside Urine Ketone - Negative Urine Specific [place] 1.010 Bedside Urine Occult Blood + Bedside Urine pH 6.0 Bedside Urine Protein +/- 15 Bedside Urine Nitrite - Negative Bedside Urine Leukocytes - Negative Esterase Imaging Data CT scan - chest: Radiologist's Impression: PROCEDURE: CT CHEST WO CON INDICATIONS: Left upper lobe consolidation TECHNIQUE: Noncontrast 5 mm thick sections acquired from the pulmonary apices to the posterior costophrenic angles. 1 mm lung window, 5 mm thick coronal and sagittal and 7 mm axial MIP reformats were then acquired. For radiation dose reduction, the following was used: automated exposure control, adjustment of mA and/or kV according to patient size. COMPARISON: [facility], CR, XR CHEST 2V, 06/08/2023, 11:39. Report from CT dated 07/24/2020. FINDINGS: Image quality: Diagnostic. Lungs and pleura: Upper lobe predominant ground-glass with smooth interstitial thickening. Focus of consolidation in the anterior and lateral right upper lobe. Mediastinum: Heart size is normal. No pericardial effusion. No mediastinal adenopathy by size criteria. Thoracic aorta and central pulmonary arteries are normal in size. Esophagus is normal in caliber. No hiatal hernia. Moderate coronary artery calcifications for age. Bones and chest wall: No suspicious bony lesions. No vertebral body compression fractures. No axillary or supraclavicular adenopathy by size criteria. No thyroid nodules which require sonographic follow up, per consensus guidelines. Upper Abdomen: 3.1 centimeter central liver lesion with peripheral hyperattenuation (series 2, image 51). Spleen is not visualized. Spine along the left upper quadrant. IMPRESSION: Bilateral ground-glass opacities with superimposed smooth interstitial thickening, with associated consolidation in the right upper lobe. Findings are concerning for multifocal pneumonia. Recommend follow-up in 2-3 months with low-dose chest CT to ensure resolution. 3.1 centimeter liver lesion with peripheral hyperattenuation. Recommend further evaluation with an outpatient MRI or CT (liver mass protocol). [facility] Narrative Medical decision making narrative: Respiratory panel was negative. CT scan of the chest shows no signs of pulmonary embolism but does show ground-glass opacities bilateral. She has been on azithromycin and amoxicillin. Plan will be to switch her to doxycycline. Attempted multiple times today to get in touch with rheumatology. We tried to contact her full stack java developer office. We were told that we would receive a phone call from the on-call full stack java developer however we never received a call. We attempted multiple times with no response. We also contacted the transfer center at [facility]. It got to the point to where the offices were closed and we were told that there was no full stack java developer on-call overnight. I discuss this with the patient. I would not start antibiotics unless I did discuss this with her full stack java developer. She is not hypoxic. Not tachypneic. She was able to produce a sputum culture. Will discharge patient home with instructions to contact her full stack java developer tomorrow for follow-up. She was given return precautions. Discharge Plan Departure Patient Disposition: Home Clinical Impression: Pneumonia Instructions: Pneumonia-Adult Activity Restrictions/Additional Instructions: Would like you to start taking a new antibiotic called doxycycline. This was sent to the pharmacy of your choice. We start taking it as directed. I recommend that tomorrow morning you contact your full stack java developer for a follow-up in to discuss potentially starting steroids. You can return to the emergency department for new or worsening symptoms. Prescriptions: New doxycycline monohydrate 100 mg tablet 100 mg PO BID 7 Days Qty: 14 0RF benzonatate 100 mg capsule 100 mg PO BID-TID PRN (Reason: cough) Qty: 20 0RF No Action sodium bicarbonate 325 mg tablet 325 mg PO DAILY benzonatate 100 mg capsule 100 mg PO TID PRN (Reason: cough) Qty: 20 0RF Prolia 60 mg/mL syringe 60 mg SUBCUT [id number] Qty: 1 0RF desonide 0.05 % cream 1 applic TOP QD-BID PRN (Reason: skin irritation) Qty: 60 3RF amoxicillin-pot clavulanate 875-125 mg tablet 1 tab PO BID 10 Days Qty: 20 0RF triamcinolone acetonide 0.1 % ointment 0.1 % Topical QDAYP PRN (Reason: psoriasis) Qty: 80 3RF acetaminophen 325 mg capsule 650 mg PO Q6H PRN folic acid 1 mg tablet 1 mg PO DAILY retuximab infusion miscellaneous lisinopril 40 mg tablet 20 mg PO DAILY nifedipine 30 mg tablet extended release 60 mg PO DAILY Referrals: Gurwinder Madison ARNP [Primary Care Provider] - Stand Alone Forms: Patient Portal/API
--- NOTE | 2023-06-08 14:21 | DI.CT.S_ITS ---
PROCEDURE: CT CHEST WO CON INDICATIONS: Left upper lobe consolidation TECHNIQUE: Noncontrast 5 mm thick sections acquired from the pulmonary apices to the posterior costophrenic angles. 1 mm lung window, 5 mm thick coronal and sagittal and 7 mm axial MIP reformats were then acquired. For radiation dose reduction, the following was used: automated exposure control, adjustment of mA and/or kV according to patient size. COMPARISON: [facility], CR, XR CHEST 2V, 06/08/2023, 11:39. Report from CT dated 07/24/2020. FINDINGS: Image quality: Diagnostic. Lungs and pleura: Upper lobe predominant ground-glass with smooth interstitial thickening. Focus of consolidation in the anterior and lateral right upper lobe. Mediastinum: Heart size is normal. No pericardial effusion. No mediastinal adenopathy by size criteria. Thoracic aorta and central pulmonary arteries are normal in size. Esophagus is normal in caliber. No hiatal hernia. Moderate coronary artery calcifications for age. Bones and chest wall: No suspicious bony lesions. No vertebral body compression fractures. No axillary or supraclavicular adenopathy by size criteria. No thyroid nodules which require sonographic follow up, per consensus guidelines. Upper Abdomen: 3.1 centimeter central liver lesion with peripheral hyperattenuation (series 2, image 51). Spleen is not visualized. Spine along the left upper quadrant. IMPRESSION: Bilateral ground-glass opacities with superimposed smooth interstitial thickening, with associated consolidation in the right upper lobe. Findings are concerning for multifocal pneumonia. Recommend follow-up in 2-3 months with low-dose chest CT to ensure resolution. 3.1 centimeter liver lesion with peripheral hyperattenuation. Recommend further evaluation with an outpatient MRI or CT (liver mass protocol). Dictated by: Shan Anderson M.D. on 06/08/2023 at 14:32 Approved by: Shan Anderson M.D. on 06/08/2023 at 14:38
[2023-06-08] MEDS: SODIUM CHLORIDE 0.9% 1,000 ML 1000 ML IV (14:36)
[2023-06-08 15:31] LABS: Adenovirus Not Detected (Not Detect); B. parapertussis Not Detected (Not Detecte); Bordetella pertussis Not Detected (Not Detect); Chlamydophila pneumoniae Not Detected (Not Detect); Coronavirus 229E Not Detected (Not Detect); Coronavirus HKU1 Not Detected (Not Detect); Coronavirus NL 63 Not Detected (Not Detect); Coronavirus OC43 Not Detected (Not Detect); Human Metapneumovirus Not Detected (Not Detect); Human Rhinovirus/Enterovirus Not Detected (Not Detect); Influenza A Not Detected (Not Detect); Influenza B Not Detected (Not Detect); Mycoplasma pneumoniae Not Detected (Not Detect); Parainfluenza Virus 1 Not Detected (Not Detect); Parainfluenza Virus 2 Not Detected (Not Detect); Parainfluenza Virus 3 Not Detected (Not Detect); Parainfluenza Virus 4 Not Detected (Not Detect); Respiratory Syncytial Virus Not Detected (Not Detect); SARS- CoV-2 Not Detected (Not Detecte)
[2023-06-08 18:49] LABS: Bacteria Urine None Seen; Culture Indicated Urine Cult Not Indicated; RBC Urine 0-1/HPF (0-5/HPF); Squamous Epithelial Cell Urine None Seen (0-5/HPF); WBC Urine None Seen (0-5/HPF)
== END 2023-06-08 19:08 | disposition home or self-care (01) ==
PROVIDERS: Emergency Provider Emergency Medicine; PCP Registered Nurse Diabetes Educator
DX: J18.9 Pneumonia, unspecified organism (principal); Z79.899 Other long term (current) drug therapy
CPT/HCPCS: 36415; 71046; 71250; 80053; 81003; 81015; 85025; 85651; 86140; 87070; 87205; 87633; 96360; 99284

== ENCOUNTER → 2023-07-22 14:30 | Outpatient (CLI) | payer MEDICARE, OTHER, SELFPAY ==
[2023-07-22 16:24] LABS: Add Manual Diff / Slide Review NO; Basophils Absolute Auto 100 /uL (0-100); Basophils Percent Auto 0.6 % (0-2); Eosinophils Absolute Auto 200 /uL (0-450); Eosinophils Percent Auto 1.5 % (2-4); Hematocrit 31.5 % (36-46); Hemoglobin 10.5 g/dL (12.0-16.0); Lymphocytes Absolute Auto 1700 /uL (1100-4500); Lymphocytes Percent Auto 16.3 % (25-40); Mean Corpuscular HGB Conc 33.5 % (30-36); Mean Corpuscular Hemoglobin 30.1 PG (26-34); Mean Corpuscular Volume 89.8 fL (80-100); Monocytes Absolute Auto 1500 /uL (0-900); Monocytes Percent Auto 14.6 % (3-14); Neutrophils Absolute Auto 7000 /uL (1500-7000); Platelet Count 636 X10^3/uL (150-400); Red Blood Cell Count 3.51 X10^6/uL (4.0-5.2); Red Cell Distribution Width 20.6 % (11.6-14.8); White Blood Cell Count 10.4 X10^3/uL (4.5-11.0)
[2023-07-22 16:56] LABS: Anisocytosis 3+
[2023-07-22 17:06] LABS: Alanine Aminotransferase 16 IU/L (<35); Albumin 3.6 g/dL (3.5-5.0); Albumin Globulin Ratio 1.2 (1.0-2.8); Alkaline Phosphatase 65 U/L (38-126); Aspartate Aminotransferase 26 IU/L (14-36); BUN Creatinine Ratio 14.2 (6-22); Bilirubin Total 0.6 mg/dL (0.2-1.3); Blood Urea Nitrogen 18 mg/dL (7-17); Calcium 9.8 mg/dL (8.4-10.2); Carbon Dioxide 26 mmol/L (22-32); Chloride 102 mmol/L (98-107); Estimated Glomerular Filt Rate 45 mL/min (>60); Globulin 3.1 g/dL (1.7-4.1); Glucose 109 mg/dL (80-110); HEMOLYSIS < 15 (0-50); Potassium 4.2 mmol/L (3.4-5.1); Sodium 137 mmol/L (137-145); Total Protein 6.7 g/dL (6.3-8.2)
[2023-07-22 20:41] LABS: Erythrocyte Sedimentation Rate 99 MM/HR (0-20)
== END ==
PROVIDERS: PCP Registered Nurse Diabetes Educator; Referring Provider Student in an Organized Health Care Education/Training Program; Visit Provider Student in an Organized Health Care Education/Training Program
DX: Z79.899 Other long term (current) drug therapy (principal)
CPT/HCPCS: 36415; 80053; 85025; 85651; 86140

== ENCOUNTER → 2023-10-20 10:09 | Outpatient (CLI) | payer MEDICARE, OTHER, SELFPAY ==
--- NOTE | 2023-10-20 10:10 | DI.RAD.S_ITS ---
PROCEDURE: XR DEXA AXIAL SKELETON INDICATIONS: reeval COMPARISON: [facility], CR, XR DEXA AXIAL SKELETON, 11/06/2022, 12:54. [facility], CR, XR DEXA AXIAL SKELETON, 08/14/2021, 11:09. DEXA 03/08/2018, 09/22/2017 FINDINGS: Lumbar Spine: Bone mineral density 1.073 g/cm2, T score 0.2, dissimilar scan type does not allow for statistical comparison. Left Hip: Bone mineral density is 0.629 g/cm2, T score -2.6, osteoporosis. Left Femoral Neck: Bone mineral density 0.494 g/cm2, T score -3.2, osteoporosis. Right Hip: Bone mineral density is 0.653 g/cm2, T score -2.4, dissimilar scan type does not allow for statistical comparison. Right Femoral Neck: Bone mineral density 0.545 g/cm2, T score -2.7, osteoporosis. Fracture Risk Calculation (when applicable): Cannot be calculated due to the presence of osteoporosis and prior osteoporosis therapy. IMPRESSION: Osteoporosis. Similar scanning type does not allow for statistical comparison. Follow-up guidelines as follows: Osteoporosis: Consider a repeat DEXA and Vertebral Fracture Assessment (VFA) exam in 2 years or sooner if medically necessary, to reassess this patient's status. Osteopenia: Consider a repeat DEXA in 2-3 years to reassess this patient's status, or if there is a new clinical indication. Normal: Consider a repeat DEXA in 5 years or sooner, or if there is a new clinical indication. Dictated by: Shan Anderson M.D. on 10/20/2023 at 13:16 Approved by: Shan Anderson M.D. on 10/20/2023 at 13:18
== END ==
PROVIDERS: PCP Registered Nurse Diabetes Educator; Referring Provider Internal Medicine; Visit Provider Internal Medicine
DX: M81.0 Age-related osteoporosis without current pathological fracture (principal); Z79.899 Other long term (current) drug therapy
CPT/HCPCS: 36415; 77080; 80053; 85025; 85651; 86140

== ENCOUNTER → 2023-10-20 10:11 | Outpatient (CLI) | payer MEDICARE, OTHER, SELFPAY ==
[2023-10-20 11:51] LABS: Add Manual Diff / Slide Review NO; Basophils Absolute Auto 0 /uL (0-100); Basophils Percent Auto 0.6 % (0-2); Eosinophils Absolute Auto 400 /uL (0-450); Eosinophils Percent Auto 4.7 % (2-4); Hematocrit 35.7 % (36-46); Lymphocytes Absolute Auto 1700 /uL (1100-4500); Mean Corpuscular HGB Conc 33.6 % (30-36); Mean Corpuscular Hemoglobin 29.4 PG (26-34); Mean Corpuscular Volume 87.6 fL (80-100); Monocytes Absolute Auto 900 /uL (0-900); Monocytes Percent Auto 12.4 % (3-14); Neutrophils Absolute Auto 4500 /uL (1500-7000); Neutrophils Percent Auto 60.3 % (50-75); Platelet Count 507 X10^3/uL (150-400); Red Blood Cell Count 4.07 X10^6/uL (4.0-5.2); Red Cell Distribution Width 14.9 % (11.6-14.8); White Blood Cell Count 7.5 X10^3/uL (4.5-11.0)
[2023-10-20 12:11] LABS: Erythrocyte Sedimentation Rate 76 MM/HR (0-20)
[2023-10-20 12:12] LABS: Alanine Aminotransferase 13 IU/L (<35); Albumin 4.3 g/dL (3.5-5.0); Albumin Globulin Ratio 1.4 (1.0-2.8); Alkaline Phosphatase 79 U/L (38-126); Aspartate Aminotransferase 29 IU/L (14-36); BUN Creatinine Ratio 13.1 (6-22); Bilirubin Total 0.4 mg/dL (0.2-1.3); Blood Urea Nitrogen 22 mg/dL (7-17); C-Reactive Protein Quant 2.9 mg/dL (<1.0); Calcium 9.5 mg/dL (8.4-10.2); Carbon Dioxide 25 mmol/L (22-32); Chloride 107 mmol/L (98-107); Estimated Glomerular Filt Rate 32 mL/min (>60); Glucose 92 mg/dL (80-110); HEMOLYSIS < 15 (0-50); Potassium 4.4 mmol/L (3.4-5.1); Sodium 139 mmol/L (137-145); Total Protein 7.3 g/dL (6.3-8.2)
== END ==
PROVIDERS: PCP Registered Nurse Diabetes Educator; Referring Provider Student in an Organized Health Care Education/Training Program; Visit Provider Student in an Organized Health Care Education/Training Program
DX: Z79.899 Other long term (current) drug therapy (principal)
CPT/HCPCS: 36415; 80053; 85025; 85651; 86140

== ENCOUNTER → 2024-10-23 09:46 | Outpatient (CLI) | payer MEDICARE, OTHER, SELFPAY ==
--- NOTE | 2024-10-23 09:52 | DI.RAD.S_ITS ---
PROCEDURE: XR DEXA AXIAL SKELETON INDICATIONS: A COMPARISON: [facility], , XR DEXA AXIAL SKELETON, 10/20/2023, 10:23. [facility], CR, DEXA AXIAL SKELETON, 09/22/2017, 10:45. Is FINDINGS: Lumbar Spine: Bone mineral density 1.075 g/cm2, T score 0.3, no significant change. Left Femoral Neck: Bone mineral density 0.510 g/cm2, T score -3.1. Left Hip: Bone mineral density 0.721 g/cm2, T score -1.8, increased by 4.5%. Fracture Risk Calculation (when applicable): 10-year fracture risk of a major osteoporotic fracture 30 percent and of a hip fracture 12 percent. (T score greater or equal to -1.0 to: NORMAL) (T score from -1.1 to -2.4: OSTEOPENIA) (T score less than or equal to -2.5: OSTEOPOROSIS) IMPRESSION: Osteoporosis by WHO classification. Follow-up guidelines as follows: Osteoporosis: Consider a repeat DEXA and Vertebral Fracture Assessment (VFA) exam in 2 years or sooner if medically necessary, to reassess this patient's status. Osteopenia: Consider a repeat DEXA in 2-3 years to reassess this patient's status, or if there is a new clinical indication. Normal: Consider a repeat DEXA in 5 years or sooner, or if there is a new clinical indication. All treatment decisions require clinical judgment and consideration of individual patient factors, including patient preferences, comorbidities, previous drug use, risk factors not captured in the FRAX model (e.g., frailty, falls, vitamin D deficiency, increased bone turnover, interval significant decline in bone density ) and possible under- or over-estimation of fracture risk by FRAX. In addition, the NOF Guide recommends that FDA-approved medical therapies be considered in postmenopausal women and men age >= 50 years with a: * Hip or vertebral (clinical or morphometric) fracture * T-score of <=-2.5 at the spine or hip * Ten-year fracture probability by FRAX of >= 3% for hip fracture or >=20% for major osteoporotic fracture. Dictated by: Gilbert Gerardo M.D. on 10/23/2024 at 12:11 Approved by: Gilbert Gerardo M.D. on 10/23/2024 at 12:15
[2024-10-23 11:00] LABS: Add Manual Diff / Slide Review NO; Basophils Absolute Auto 0 /uL (0-100); Basophils Percent Auto 0.5 % (0-2); Eosinophils Absolute Auto 100 /uL (0-450); Eosinophils Percent Auto 0.8 % (2-4); Hematocrit 39.4 % (36-46); Hemoglobin 13.2 g/dL (12.0-16.0); Lymphocytes Absolute Auto 1900 /uL (1100-4500); Lymphocytes Percent Auto 25.2 % (25-40); Mean Corpuscular HGB Conc 33.5 % (30-36); Mean Corpuscular Hemoglobin 31.2 PG (26-34); Mean Corpuscular Volume 93.3 fL (80-100); Monocytes Absolute Auto 900 /uL (0-900); Monocytes Percent Auto 12.5 % (3-14); Neutrophils Absolute Auto 4500 /uL (1500-7000); Platelet Count 351 X10^3/uL (150-400); Red Blood Cell Count 4.23 X10^6/uL (4.0-5.2); Red Cell Distribution Width 15.4 % (11.6-14.8); White Blood Cell Count 7.4 X10^3/uL (4.5-11.0)
[2024-10-23 11:17] LABS: Erythrocyte Sedimentation Rate 33 MM/HR (0-20)
[2024-10-23 11:23] LABS: Alanine Aminotransferase 32 IU/L (<35); Albumin 4.2 g/dL (3.5-5.0); Alkaline Phosphatase 49 U/L (38-126); Aspartate Aminotransferase 41 IU/L (14-36); BUN Creatinine Ratio 24.9 (6-22); Bilirubin Total 0.7 mg/dL (0.2-1.3); Blood Urea Nitrogen 44 mg/dL (7-17); C-Reactive Protein Quant < 0.5 mg/dL (<1.0); Calcium 10.2 mg/dL (8.4-10.2); Carbon Dioxide 26 mmol/L (22-32); Chloride 105 mmol/L (98-107); Estimated Glomerular Filt Rate 30 mL/min (>60); Globulin 2.1 g/dL (1.7-4.1); Glucose 87 mg/dL (70-99); HEMOLYSIS < 15 (0-50); Potassium 4.9 mmol/L (3.4-5.1); Sodium 139 mmol/L (137-145); Total Protein 6.3 g/dL (6.3-8.2)
== END ==
PROVIDERS: PCP Registered Nurse Diabetes Educator; Referring Provider Internal Medicine; Visit Provider Internal Medicine
DX: M81.0 Age-related osteoporosis without current pathological fracture (principal); Z79.899 Other long term (current) drug therapy; E21.3 Hyperparathyroidism, unspecified
CPT/HCPCS: 36415; 77080; 80053; 85025; 85651; 86140

== ENCOUNTER → 2025-01-30 12:56 | Outpatient (CLI) | payer MEDICARE, OTHER, SELFPAY ==
--- NOTE | 2025-01-30 12:58 | DI.RAD.S_ITS ---
PROCEDURE: XR HIP W PEL IF DONE LT 2V INDICATIONS: eval chronic L hip pain TECHNIQUE: AP pelvis with lateral view(s) of the left hip(s). COMPARISON: None. FINDINGS: Bones: No fractures or dislocations. Pelvic ring appears intact. No suspicious bony lesions. Mild nonuniform joint space narrowing with osteophytic lipping of the acetabulum. Soft tissues: The visualized bowel gas pattern is normal. No suspicious soft tissue calcifications. IMPRESSION: Mild to moderate left hip osteoarthritis. Kellgren-Enrique Grade 2. Dictated by: Shan Anderson M.D. on 01/30/2025 at 15:19 Approved by: Shan Anderson M.D. on 01/30/2025 at 15:20
== END ==
PROVIDERS: PCP Registered Nurse Diabetes Educator; Referring Provider Registered Nurse Diabetes Educator; Visit Provider Registered Nurse Diabetes Educator
DX: M16.12 Unilateral primary osteoarthritis, left hip (principal); M25.552 Pain in left hip; G89.29 Other chronic pain
CPT/HCPCS: 73502

== ENCOUNTER → 2025-04-18 11:06 | Outpatient (CLI) | payer MEDICARE, OTHER, SELFPAY ==
[2025-04-18 12:09] LABS: Add Manual Diff / Slide Review NO; Hematocrit 42.3 % (36-46); Hemoglobin 14.2 g/dL (12.0-16.0); Lymphocytes Absolute Auto 3100 /uL (1100-4500); Mean Corpuscular HGB Conc 33.7 % (30-36); Mean Corpuscular Hemoglobin 30.3 PG (26-34); Mean Corpuscular Volume 90.1 fL (80-100); Platelet Count 355 X10^3/uL (150-400)
[2025-04-18 12:18] LABS: Alanine Aminotransferase 21 IU/L (<35); Albumin 4.4 g/dL (3.5-5.0); Albumin Globulin Ratio 2.0 (1.0-2.8); Alkaline Phosphatase 56 U/L (38-126); Blood Urea Nitrogen 34 mg/dL (7-17); Calcium 9.8 mg/dL (8.4-10.2); Carbon Dioxide 26 mmol/L (22-32); Chloride 104 mmol/L (98-107); Estimated Glomerular Filt Rate 28 mL/min (>60); Globulin 2.2 g/dL (1.7-4.1); Glucose 93 mg/dL (70-99); HEMOLYSIS < 15 (0-50); Potassium 5.3 mmol/L (3.4-5.1); Sodium 139 mmol/L (137-145); Total Protein 6.6 g/dL (6.3-8.2)
== END ==
PROVIDERS: PCP Registered Nurse Diabetes Educator; Referring Provider Registered Nurse Diabetes Educator; Visit Provider Registered Nurse Diabetes Educator
DX: Z79.899 Other long term (current) drug therapy (principal)
CPT/HCPCS: 36415; 80053; 85025; 85651; 86140